=== PATIENT | male | born 1935 | race Caucasian/White ===

== ENCOUNTER 2017-12-01 18:54 | Emergency (ER) | payer MEDICARE ==
[2017-12-01] MEDS ORDERED: HYDROCODONE/ACETAMINOPHEN 5-325 MG TABLET PO ONE (20:55)
--- NOTE | 2017-12-01 20:55 | ER Document Report ---
ED Medical Screen (RME) - General Chief Complaint: Flank Pain Stated Complaint: FLANK PAIN Time Seen by Provider: 12/01/17 20:53 Notes: RAPID MEDICAL EVALUATION DISCLOSURE I have seen this patient as part of a Rapid Medical Evaluation and, if applicable, placed any initially appropriate orders. The patient will be seen and fully evaluated, including a full history and physical exam, by a provider ( in Main ED or Fast Track) when a room becomes available. 82-year-old male here with complaints of right back pain nonradiating ongoing for the past 2 weeks intermittently. Pain is worse with movement. Pain is improved with minimizing movement. He has been taking Tylenol for the pain. He denies any nausea vomiting dysuria hematuria frequency hesitancy fevers chills. He denies any heavy lifting or traumatic injury. Denies any prior history of kidney stones. EXAM No tenderness to palpation of the paraspinal musculature or midline spine No significant abdominal tenderness No peritoneal signs TRAVEL OUTSIDE OF THE [place] IN LAST 30 DAYS: No - Related Data Allergies/Adverse Reactions: No Known Allergies Allergy (Verified 12/01/17 18:57) Past Medical History - Past Medical History Cardiac Medical History: Denies: Hx Heart Attack, Hx Hypertension Pulmonary Medical History: Denies: Hx Asthma Neurological Medical History: Denies: Hx Cerebrovascular Accident, Hx Seizures Renal/ Medical History: Reports: Hx Benign Prostatic Hyperplasia GI Medical History: Reports: Hx Hiatal Hernia. Denies: Hx Hepatitis, Hx Ulcer Infectious Medical History: Denies: Hx Hepatitis Past Surgical History: Reports: Hx Abdominal Surgery - hernia repair, Hx Orthopedic Surgery - cervical fusion. Denies: Hx Open Heart Surgery, Hx Pacemaker - Immunizations Hx Diphtheria, Pertussis, Tetanus Vaccination: - unknown Physical Exam - Vital signs Vitals: Temp Pulse Resp BP Pulse Ox 98 F 68 18 151/85 H 99 12/01/17 19:16 12/01/17 19:16 12/01/17 19:16 12/01/17 19:16 12/01/17 19:16 Course - Vital Signs Vital signs: Temp Pulse Resp BP Pulse Ox 98 F 68 18 151/85 H 99 12/01/17 19:16 12/01/17 19:16 12/01/17 19:16 12/01/17 19:16 12/01/17 19:16
[2017-12-01 21:13] LABS: APPEARANCE,URINE CLEAR; BILIRUBIN,URINE NEGATIVE (NEGATIVE); COLOR,URINE YELLOW; GLUCOSE, URINE NEGATIVE (NEGATIVE); KETONES,URINE NEGATIVE (NEGATIVE); LEUKOCYTE ESTERASE,URINE NEGATIVE (NEGATIVE); NITRITE,URINE NEGATIVE (NEGATIVE); PROTEIN,URINE NEGATIVE (NEGATIVE); URINE SPECIFIC GRAVITY 1.013
[2017-12-01 21:49] LABS: ABSOLUTE BASOPHILS # (AUTO) 0.1 10^3/uL (0.0-0.2); ABSOLUTE EOSINOPHILS # (AUTO) 0.3 10^3/uL (0.0-0.6); ABSOLUTE LYMPHOCYTES (AUTO) 1.8 10^3/uL (0.5-4.7); ABSOLUTE MONOCYTES (AUTO) 0.9 10^3/uL (0.1-1.4); ABSOLUTE NEUT (AUTO) 5.1 10^3/uL (1.7-8.2); BASOPHILS % (AUTO) 1.1 % (0-2); EOSINOPHILS % (AUTO) 3.5 % (0-6); HEMATOCRIT 49.8 % (37.9-51.0); HEMOGLOBIN 16.8 g/dL (13.5-17.0); LYMPHOCYTES % (AUTO) 22.2 % (13-45); MEAN CORPUSCULAR HEMOGLOBIN 30.5 pg (27.0-33.4); MEAN CORPUSCULAR HGB CONC 33.6 g/dL (32.0-36.0); MEAN CORPUSCULAR VOLUME 91 fl (80-97); MONOCYTES % (AUTO) 10.6 % (3-13); PLATELET COUNT 193 10^3/uL (150-450); RED BLOOD COUNT 5.49 10^6/uL (4.35-5.55); RED CELL DISTRIBUTION WIDTH 13.1 % (11.5-14.0); SEGMENTED NEUTROPHILS % (AUTO) 62.6 % (42-78); TOTAL CELLS COUNTED % (AUTO) 100 %; WHITE BLOOD COUNT 8.1 10^3/uL (4.0-10.5)
[2017-12-01 22:04] LABS: ALANINE AMINOTRANSFERASE 34 U/L (21-72); ALBUMIN 4.3 g/dL (3.5-5.0); ALKALINE PHOSPHATASE 88 U/L (38-126); ANION GAP 11 (5-19); ASPARTATE AMINO TRANSFERASE 35 U/L (17-59); BILIRUBIN,DIRECT 0.4 mg/dL (0.0-0.4); BILIRUBIN,TOTAL 0.5 mg/dL (0.2-1.3); BLOOD UREA NITROGEN 17 mg/dL (7-20); CALCIUM 9.2 mg/dL (8.4-10.2); CARBON DIOXIDE 26 mmol/L (22-30); CHLORIDE 104 mmol/L (98-107); GLUCOSE 100 mg/dL (75-110); POTASSIUM 4.2 mmol/L (3.6-5.0); SODIUM 140.7 mmol/L (137-145); TOTAL PROTEIN 7.4 g/dL (6.3-8.2)
--- NOTE | 2017-12-01 22:26 | RADIOLOGY REPORT (SQ) ---
EXAM DESCRIPTION: CT LTD RENAL STONE PROTOCOL ON COMPLETED DATE/TIME: 12/01/2017 9:52 pm REASON FOR STUDY: R back/flank pain; eval stone COMPARISON: None. TECHNIQUE: CT scan of the abdomen and pelvis performed without intravenous or oral contrast. Images reviewed with lung, soft tissue, and bone windows. Reconstructed coronal and sagittal MPR images revi ewed. All images stored on PACS. All CT scanners at this facility use dose modulation, iterative reconstruction, and/or weight based d osing when appropriate to reduce radiation dose to as low as reasonably achievable (ALARA). [facility]: Dose Right [facility]: CareDose [facility]: Dose Right [facility]: Teradose 4D [facility]: [employer] RADIATION DOSE: CT Rad equipment meets quality standard of care and radiation dose reduction techniq ues were employed. CTDIvol: 18.2 mGy. DLP: 998 mGy-cm.mGy. LIMITATIONS: None. FINDINGS: LOWER CHEST: No significant findings. No nodules or infiltrates. NON-CONTRASTED LIVER, SPLEEN, ADRENALS: 5 cm right hepatic lobe peripheral 5 cm low-density lesion wi th small internal calcifications. Evaluation limited by lack of IV contrast. No identified significa nt masses. PANCREAS: No masses. No peripancreatic inflammatory changes. GALLBLADDER: No identified stones by CT criteria. No inflammatory changes to suggest cholecystitis. RIGHT KIDNEY AND URETER: Small parenchymal cysts. Assessment limited by lack of IV contrast. No sig nificant calcifications. No hydronephrosis or hydroureter. LEFT KIDNEY AND URETER: No suspicious masses. Assessment limited by lack of IV contrast. No signifi cant calcifications. No hydronephrosis or hydroureter. AORTA AND RETROPERITONEUM: No aneurysm. No retroperitoneal masses or adenopathy. BOWEL AND PERITONEAL CAVITY: Diverticulosis. No obvious masses or inflammatory changes. No free flui d. APPENDIX: Normal. PELVIS, BLADDER, AND ABDOMINAL WALL:Small fat containing right inguinal hernia. No free fluid. Bladde r normal. BONES: No acute findings. OTHER: No other significant finding. IMPRESSION: NO ACUTE PROCESS IN THE ABDOMEN OR PELVIS. COMMENT: Quality ID # [id number]: Final reports with documentation of one or more dose reduction techniques (e.g., Automated exposure control, adjustment of the mA and/or kV according to patient size, use of iterative reconstruction technique) TECHNICAL DOCUMENTATION: JOB ID: [id number] [place]-72 2010 [employer]- All Rights Reserved Reading location - IP/workstation name: [email or web address]
[2017-12-01 23:14] VITALS: BP 142/92
[2017-12-01] MEDS ORDERED: LIDOCAINE 5% (700 MG) TRANSDERMAL ADH..PATCH TP ONE (23:21)
--- NOTE | 2017-12-01 23:22 | ER Document Report ---
ED General - General Mode of Arrival: Ambulatory Information source: Patient TRAVEL OUTSIDE OF THE [place]. IN LAST 30 DAYS: No <MARTY FELIX - Last Filed: 12/01/17 23:46> <HIRO FELIZ - Last Filed: 12/02/17 02:41> - General Chief Complaint: Flank Pain Stated Complaint: FLANK PAIN Time Seen by Provider: 12/01/17 20:53 Notes: Patient is an 82 year old male that presents to the emergency department today with complaints of right sided lower back pain x2 weeks. Patient states his pain is exacerbated with movement. Patient states he has taken "minor stuff for pain like tylenol" which minimally relieved his symptoms. Patient denies cough, fevers, fall, or new activities. (MARTY FELIX) - Related Data Allergies/Adverse Reactions: No Known Allergies Allergy (Verified 12/01/17 18:57) Past Medical History - General Information source: Patient - Social History Smoking Status: Never Smoker Cigarette use (# per day): No Chew tobacco use (# tins/day): Yes Frequency of alcohol use: Social Drug Abuse: None Lives with: Family Family History: Reviewed & Not Pertinent Patient has suicidal ideation: No Patient has homicidal ideation: No Renal/ Medical History: Reports: Hx Benign Prostatic Hyperplasia GI Medical History: Reports: Hx Hiatal Hernia Past Surgical History: Reports: Hx Abdominal Surgery - hernia repair, Hx Orthopedic Surgery - cervical fusion - Immunizations Hx Diphtheria, Pertussis, Tetanus Vaccination: - unknown <MARTY FELIX - Last Filed: 12/01/17 23:46> Review of Systems - Review of Systems Constitutional: denies: Fever EENT: No symptoms reported Cardiovascular: No symptoms reported Respiratory: denies: Cough Gastrointestinal: No symptoms reported Genitourinary: No symptoms reported Male Genitourinary: No symptoms reported Musculoskeletal: See HPI, Back pain - right side, lower, Muscle pain - hurts to move Skin: No symptoms reported Hematologic/Lymphatic: No symptoms reported Neurological/Psychological: No symptoms reported -: Yes All other systems reviewed and negative <MARTY FELIX - Last Filed: 12/01/17 23:46> Physical Exam - Vital signs Interpretation: Normal - General General appearance: Appears well, Alert - HEENT Head: Normocephalic, Atraumatic Eyes: Normal Pupils: PERRL - Respiratory Respiratory status: No respiratory distress Chest status: Nontender Breath sounds: Normal Chest palpation: Normal - Cardiovascular Rhythm: Regular Heart sounds: Normal auscultation Murmur: No - Abdominal Inspection: Normal Distension: No distension Bowel sounds: Normal Tenderness: Nontender Organomegaly: No organomegaly - Back Back: Normal, Tender - Mild paraspinal tenderness to palpation T12-L2. Reproducible tenderness. No CVA tenderness. - Extremities General upper extremity: Normal inspection, Nontender, Normal color, Normal ROM , Normal temperature General lower extremity: Normal inspection, Nontender, Normal color, Normal ROM , Normal temperature, Normal weight bearing. No: Jean's sign - Neurological Neuro grossly intact: Yes Cognition: Normal Orientation: AAOx4 Heather Coma Scale Eye Opening: Spontaneous [place] Coma Scale Verbal: Oriented [place] Coma Scale Motor: Obeys Commands [place] Coma Scale Total: 15 Speech: Normal Motor strength normal: LUE, RUE, LLE, RLE Sensory: Normal - Psychological Associated symptoms: Normal affect, Normal mood - Skin Skin Temperature: Warm Skin Moisture: Dry Skin Color: Normal <HIRO FELIZ - Last Filed: 12/02/17 02:41> - Vital signs Vitals: Temp Pulse Resp BP Pulse Ox 98 F 68 18 151/85 H 99 12/01/17 19:16 12/01/17 19:16 12/01/17 19:16 12/01/17 19:16 12/01/17 19:16 Course - Laboratory Result Diagrams: 12/01/17 21:37 12/01/17 21:37 <MARTY FELIX - Last Filed: 12/01/17 23:46> - Laboratory Result Diagrams: 12/01/17 21:37 12/01/17 21:37 <HIRO FELIZ - Last Filed: 12/02/17 02:41> - Re-evaluation Re-evalutation: 12/02/17 Patient with no acute findings on blood work, urine, or CT. Reproducible pain that is worse with movement. Patient does not want anything stronger than Tylenol. He will be given Lidoderm patches and is to follow-up with his doctor. No weakness or paresthesias. No other concerns. Stable for discharge. (HIRO FELZI) - Vital Signs Vital signs: Temp Pulse Resp BP Pulse Ox 97.8 F 68 18 142/92 H 97 12/01/17 23:03 12/01/17 23:03 12/01/17 23:03 12/01/17 23:03 12/01/17 23:03 - Laboratory Laboratory results interpreted by me: 12/01/17 19:18 Urine Urobilinogen 2.0 H Discharge <MARTY FELIX - Last Filed: 12/01/17 23:46> <HIRO FELIZ - Last Filed: 12/02/17 02:41> - Discharge Clinical Impression: Lower back injury Qualifiers: Encounter type: initial encounter Qualified Code(s): S39.92XA - Unspecified injury of lower back, initial encounter Condition: Stable Disposition: HOME, SELF-CARE Instructions: Low Back Pain ([facility]) Additional Instructions: Please follow-up with your doctor this week. Prescriptions: Lidocaine [Lidoderm 5% (700 mg) Transdermal Patch] 1 patch TP DAILY #14 adh..patch Scribe Attestation: 12/02/17 02:41 I personally performed the services described in the documentation, reviewed and edited the documentation which was dictated to the scribe in my presence, and it accurately records my words and actions. (HIRO FELIZ) Scribe Documentation - Scribe Written by Armida:: Armida Barbosa, 12/01/2017 [id number] acting as scribe for :: Caroline <MARTY FELIX - Last Filed: 12/01/17 23:46>
== END 2017-12-01 23:32 | disposition home or self-care (01) ==
LOC: ER 18:54
DX: S39.92XA Unspecified injury of lower back, initial encounter (principal); R10.9 Unspecified abdominal pain; M54.5 Low back pain; X58.XXXA Exposure to other specified factors, initial encounter
CPT/HCPCS: 99284; 36415; 85025; 80053; 81001; 76380; A9270

== ENCOUNTER → 2018-03-10 | Outpatient (CLI) | payer MEDICARE | LOC: DACC 15:17 | PROVIDERS: ATTEND Physician Assistant Medical | DX: L08.9 Local infection of the skin and subcutaneous tissue, unspecified (principal); B96.89 Other specified bacterial agents as the cause of diseases classified elsewhere | CPT/HCPCS: 87070; 87077; 87205 ==

== ENCOUNTER → 2019-06-07 | Outpatient (CLI) | payer MEDICARE ==
--- NOTE | 2019-06-07 13:36 | RADIOLOGY REPORT (SQ) ---
EXAM DESCRIPTION: MRI HEAD COMBO COMPLETED DATE/TIME: 06/07/2019 12:16 pm REASON FOR STUDY: R41.0 DISORIENTATION, UNSPECIFIED R27.0 ATAXIA, UNSPECIFIED R27.0 ATAXIA, UNSPECI FIED R41.0 DISORIENTATION, UNSPECIFIED COMPARISON: None. TECHNIQUE: Multiplanar imaging includes noncontrasted T1, T2, FLAIR, diffusion with ADC map and post gadolinium contrast T1 sequences. Images stored on PACS. CONTRAST TYPE AND DOSE: 20 mL Dotarem. RENAL FUNCTION: Not indicated. ACR Type II contrast agent associated with few, if any, unconfounded cases of NSF LIMITATIONS: None. FINDINGS: ANATOMY: Incidental note of cavum septum pellucidum et vergae variant of the lateral ventr icles. Normal vascular flow voids. Pituitary fossa normal. CSF SPACES: Normal in size and contour. No hemorrhage. CEREBRUM: Mild global volume loss. Extensive, scattered and confluent periventricular and deep white matter T2/FLAIR hyperintensity. 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 No evidence of hemorrhage, mass, or extraaxial fluid collection. No abnormal enhancement post contrast. POSTERIOR FOSSA: No signal alteration. No hemorrhage. No edema, masses, or mass effect. Internal elzbieta tory canals, cerebellopontine angles, mastoids normal. No enhancing lesions. No abnormal enhancement post contrast. DIFFUSION IMAGING: Negative for acute or subacute infarction. ORBITS: No masses. Globes normal. PARANASAL SINUSES: No fluid levels. Mucosa normal. OTHER: No other significant finding. IMPRESSION: 1. Advanced small vessel white matter disease and global volume loss. No abnormal intr acranial contrast enhancement. 2. 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 EVIDENCE OF ACUTE STROKE: NO. TECHNICAL DOCUMENTATION: JOB ID: [id number] [employer]- All Rights Reserved Reading location - IP/workstation name: [email or web address]
== END ==
LOC: RAD 11:01
PROVIDERS: ATTEND Physician Assistant
DX: R90.82 White matter disease, unspecified (principal); R27.0 Ataxia, unspecified; R41.0 Disorientation, unspecified
CPT/HCPCS: 82565; 70553; A9576

== ENCOUNTER 2019-12-03 02:47 | Emergency (ER) | payer MEDICARE, OTHER ==
--- NOTE | 2019-12-03 04:32 | ER Document Report ---
HPI - HPI Patient complains to provider of: constipation Time Seen by Provider: 12/03/19 04:09 Pain Level: 0 Context: 84-year-old male presents to the emergency department with chief complaint of constipation. Per patient, he has not had a regular bowel movement in 2 days but had a small bowel movement this morning. Patient states that he is passing gas. Patient denies any abdominal pain. Patient states that he has been straining for the last 2 days to have bowel movement. Patient states that his daughter is giving him some type of laxative mixed into his drink in the morning. Patient denies fevers or chills, denies any nausea or vomiting, denies chest pain or shortness of breath. - REPRODUCTIVE Reproductive: DENIES: : Past Medical History - Social History Smoking Status: Never Smoker Family History: Reviewed & Not Pertinent Patient has suicidal ideation: No Patient has homicidal ideation: No - Past Medical History Cardiac Medical History: Denies: Hx Heart Attack, Hx Hypertension Pulmonary Medical History: Denies: Hx Asthma Neurological Medical History: Denies: Hx Cerebrovascular Accident, Hx Seizures Renal/ Medical History: Reports: Hx Benign Prostatic Hyperplasia. Denies: Hx Peritoneal Dialysis GI Medical History: Reports: Hx Hiatal Hernia. Denies: Hx Hepatitis, Hx Ulcer Infectious Medical History: Denies: Hx Hepatitis Past Surgical History: Reports: Hx Abdominal Surgery - hernia repair, Hx Orthopedic Surgery - cervical fusion. Denies: Hx Open Heart Surgery, Hx Pacemaker - Immunizations Hx Diphtheria, Pertussis, Tetanus Vaccination: - unknown Vertical Provider Document - CONSTITUTIONAL Notes: PHYSICAL EXAMINATION: Reviewed vital signs and charting by RN GENERAL: Alert, interacts well. No acute distress. HEAD: Normocephalic, atraumatic. EYES: Pupils equal and round. Extraocular movements intact. ENT: Oral mucosa moist, tongue midline. NECK: Full range of motion. Trachea midline. LUNGS: Clear to auscultation bilaterally, no wheezes, rales, or rhonchi. No respiratory distress. HEART: Regular rate and rhythm. No murmur ABDOMEN: soft, mild left lower quadrant tenderness to palpation. No distention. Bowel sounds present EXTREMITIES: Moves all 4 extremities spontaneously. No edema, No cyanosis. PSYCH: Normal affect, normal mood. SKIN: Warm, dry, normal turgor. No rashes or lesions noted. - INFECTION CONTROL TRAVEL OUTSIDE OF THE [place] IN LAST 30 DAYS: No Course - Re-evaluation Re-evalutation: 12/03/19 04:31 Well-appearing and nontoxic. Patient presents with constipation, had a small bowel movement today and last full bowel movement was 2 days ago. Patient denies any abdominal pain. Patient refused a rectal exam and possible disimpaction. Patient refused an enema. KUB showed a normal gas bowel pattern with no air-fluid levels concerning for obstruction. Patient is passing gas. At this time I have recommended that he start MiraLAX there is no concerning etiology at this time he is stable for discharge. - Vital Signs Vital signs: Temp Pulse Resp BP Pulse Ox 97.7 F 98 16 126/65 H 96 12/03/19 02:55 12/03/19 02:52 12/03/19 02:52 12/03/19 02:52 12/03/19 02:52 Discharge - Discharge Clinical Impression: Constipation Qualifiers: Constipation type: unspecified constipation type Qualified Code(s): K59.00 - Constipation, unspecified Condition: Good Disposition: HOME, SELF-CARE Instructions: Constipation ([facility]) Additional Instructions: Please take 1 capful of MiraLAX and mix it with the liquid of your choice every morning until you start having regular bowel movements. If you do not see resul ts in 72 to 96 hours please do 1 cup in the morning and then 1 cup in the evening. If you start to have loose stools then reduce the dosing by one half. Please return to the emergency department if you develop severe abdominal pain, high fevers, intractable nausea or vomiting, or have any other concerning symptoms. Referrals: ARI MARTIN PA [Primary Care Provider] - Follow up as needed
--- NOTE | 2019-12-03 04:36 | RADIOLOGY REPORT (SQ) ---
Abdomen single view on 12/03/2019 at 4:01 AM Clinical indications: Constipation COMPARISON: None FINDINGS: Bowel gas pattern is nonspecific. Mild stool is noted in the rectum without significant constipation. Degenerative changes are noted in the spine. No abnormal calcification or mass effect is noted. IMPRESSION: Nonspecific abdomen.
[2019-12-03 05:06] VITALS: BP 127/70
== END 2019-12-03 04:49 | disposition home or self-care (01) ==
LOC: ER 02:47
DX: K59.00 Constipation, unspecified (principal)
CPT/HCPCS: 74018; 99283

== ENCOUNTER 2019-12-12 15:26 | Emergency (ER) | payer MEDICARE ==
--- NOTE | 2019-12-12 15:44 | ER Document Report ---
ED Medical Screen (RME) - General Chief Complaint: Flank Pain Stated Complaint: FLANK PAIN Time Seen by Provider: 12/12/19 15:40 Primary Care Provider: ARI MARTIN PA [Primary Care Provider] - Follow up as needed Information source: Patient Notes: Patient presents with right flank pain for the past 2 days. Patient denies any fever nausea or vomiting. Patient denies any urinary symptoms. Patient reports past medical history only significant for BPH. I have greeted and performed a rapid initial assessment of this patient. A comprehensive ED assessment and evaluation of the patient, analysis of test results and completion of the medical decision making process will be conducted by additional ED providers. TRAVEL OUTSIDE OF THE [place] IN LAST 30 DAYS: No - Related Data Allergies/Adverse Reactions: No Known Allergies Allergy (Verified 12/01/17 18:57) Past Medical History - Social History Chew tobacco use (# tins/day): No Frequency of alcohol use: Occasional Drug Abuse: None - Past Medical History Cardiac Medical History: Denies: Hx Heart Attack, Hx Hypertension Pulmonary Medical History: Denies: Hx Asthma Neurological Medical History: Denies: Hx Cerebrovascular Accident, Hx Seizures Renal/ Medical History: Reports: Hx Benign Prostatic Hyperplasia. Denies: Hx Peritoneal Dialysis GI Medical History: Reports: Hx Hiatal Hernia. Denies: Hx Hepatitis, Hx Ulcer Infectious Medical History: Denies: Hx Hepatitis Past Surgical History: Reports: Hx Abdominal Surgery - hernia repair, Hx Orthopedic Surgery - cervical fusion. Denies: Hx Open Heart Surgery, Hx Pacemaker - Immunizations Hx Diphtheria, Pertussis, Tetanus Vaccination: - unknown Physical Exam - Vital signs Vitals: Temp Pulse Resp BP Pulse Ox 98.6 F 83 20 96/71 L 96 12/12/19 15:36 12/12/19 15:36 12/12/19 15:36 12/12/19 15:36 12/12/19 15:36 - Back Back: CVA tenderness - Right Course - Vital Signs Vital signs: Temp Pulse Resp BP Pulse Ox 98.6 F 83 20 96/71 L 96 12/12/19 15:39 12/12/19 15:36 12/12/19 15:36 12/12/19 15:36 12/12/19 15:36 Doctor's Discharge - Discharge Referrals: ARI MARTIN PA [Primary Care Provider] - Follow up as needed
[2019-12-12 16:06] LABS: ABSOLUTE BASOPHILS # (AUTO) 0.1 10^3/uL (0.0-0.2); ABSOLUTE EOSINOPHILS # (AUTO) 0.3 10^3/uL (0.0-0.6); ABSOLUTE LYMPHOCYTES (AUTO) 1.5 10^3/uL (0.5-4.7); ABSOLUTE MONOCYTES (AUTO) 1.1 10^3/uL (0.1-1.4); ABSOLUTE NEUT (AUTO) 6.3 10^3/uL (1.7-8.2); BASOPHILS % (AUTO) 0.9 % (0-2); EOSINOPHILS % (AUTO) 3.1 % (0-6); HEMATOCRIT 47.6 % (37.9-51.0); HEMOGLOBIN 16.5 g/dL (13.5-17.0); LYMPHOCYTES % (AUTO) 16.3 % (13-45); MEAN CORPUSCULAR HEMOGLOBIN 30.2 pg (27.0-33.4); MEAN CORPUSCULAR HGB CONC 34.7 g/dL (32.0-36.0); MEAN CORPUSCULAR VOLUME 87 fl (80-97); MONOCYTES % (AUTO) 11.5 % (3-13); PLATELET COUNT 222 10^3/uL (150-450); RED BLOOD COUNT 5.47 10^6/uL (4.35-5.55); RED CELL DISTRIBUTION WIDTH 13.4 % (11.5-14.0); SEGMENTED NEUTROPHILS % (AUTO) 68.2 % (42-78); TOTAL CELLS COUNTED % (AUTO) 100 %; WHITE BLOOD COUNT 9.2 10^3/uL (4.0-10.5)
[2019-12-12 16:29] LABS: ALKALINE PHOSPHATASE 73 U/L (38-126); ANION GAP 8 (5-19); ASPARTATE AMINO TRANSFERASE 28 U/L (17-59); BILIRUBIN,TOTAL 0.4 mg/dL (0.2-1.3); BLOOD UREA NITROGEN 21 mg/dL (7-20); CALCIUM 9.2 mg/dL (8.4-10.2); CARBON DIOXIDE 25 mmol/L (22-30); CHLORIDE 101 mmol/L (98-107); GLUCOSE 95 mg/dL (75-110); POTASSIUM 4.9 mmol/L (3.6-5.0); TOTAL PROTEIN 7.1 g/dL (6.3-8.2)
--- NOTE | 2019-12-12 16:36 | RADIOLOGY REPORT (SQ) ---
EXAM DESCRIPTION: CT ABD/PELVIS NO ORAL OR IV IMAGES COMPLETED DATE/TIME: 12/12/2019 4:05 pm REASON FOR STUDY: r flank pain COMPARISON: None. TECHNIQUE: CT scan of the abdomen and pelvis performed without intravenous or oral contrast. Images reviewed with lung, soft tissue, and bone windows. Reconstructed coronal and sagittal MPR images revi ewed. All images stored on PACS. All CT scanners at this facility use dose modulation, iterative reconstruction, and/or weight based d osing when appropriate to reduce radiation dose to as low as reasonably achievable (ALARA). [facility]: Dose Right [facility]: CareDose [facility]: Dose Right [facility]: Teradose 4D [facility]: [employer] RADIATION DOSE: CT Rad equipment meets quality standard of care and radiation dose reduction techniq ues were employed. CTDIvol: 15.5 mGy. DLP: 950 mGy-cm.mGy. LIMITATIONS: None. FINDINGS: LOWER CHEST: Moderate hiatal hernia. NON-CONTRASTED LIVER, SPLEEN, ADRENALS: Evaluation limited by lack of IV contrast. 4.8 cm right hepa tic lobe cyst with single thin septation. No other identified significant masses. PANCREAS: No masses. No peripancreatic inflammatory changes. GALLBLADDER: No identified stones by CT criteria. No inflammatory changes to suggest cholecystitis. RIGHT KIDNEY AND URETER: No suspicious masses. Assessment limited by lack of IV contrast. 18 mm cyst . No definitive stones. Vascular calcification noted. No hydronephrosis or hydroureter. LEFT KIDNEY AND URETER: No suspicious masses. Assessment limited by lack of IV contrast. No signifi cant calcifications. No hydronephrosis or hydroureter. AORTA AND RETROPERITONEUM: No aneurysm. No retroperitoneal masses or adenopathy. BOWEL AND PERITONEAL CAVITY: Scattered colonic diverticula. No focal bowel wall thickening. Moderat e hiatal hernia. Moderate formed stool throughout the colon and within the rectal vault. APPENDIX: Normal. PELVIS, BLADDER, AND ABDOMINAL WALL:No focal bladder wall thickening. Prostatomegaly measuring 4.8 c m. No free fluid, adenopathy or mass. BONES: No acute bony abnormality. No suspicious osseous lesions. Evidence of prior left ilium fract ure. OTHER: No other significant finding. IMPRESSION: 1. No evidence of nephrolithiasis or obstructive uropathy. No other evidence of acute intra-abdominal/pelvic process. 2. Multiple incidental findings as above. COMMENT: Quality ID # [id number]: Final reports with documentation of one or more dose reduction techniques (e.g., Automated exposure control, adjustment of the mA and/or kV according to patient size, use of iterative reconstruction technique) TECHNICAL DOCUMENTATION: JOB ID: [id number] 2010 [employer]- All Rights Reserved Reading location - IP/workstation name: [email or web address]
--- NOTE | 2019-12-12 17:02 | ER Document Report ---
ED General - General Chief Complaint: Flank Pain Stated Complaint: FLANK PAIN Time Seen by Provider: 12/12/19 15:40 Primary Care Provider: ARI MARTIN PA [Primary Care Provider] - Follow up as needed TRAVEL OUTSIDE OF THE [place] IN LAST 30 DAYS: No - HPI Notes: Patient is an 84-year-old male who presents the emergency department for evaluation of pain in his right flank. He states it is been present for a couple of days. He states he has no pain at rest, it only hurts to move, and in certain positions. He denies any fevers or chills. No nausea or vomiting. He is eating and drinking normally. Normal bowel movements. No melena or hematochezia. No urinary symptoms, no hematuria. He states he has a history of BPH, stopped taking the medication for this, and still states he is not having any trouble urinating. - Related Data Allergies/Adverse Reactions: No Known Allergies Allergy (Verified 12/01/17 18:57) Past Medical History - General Information source: Patient - Social History Smoking Status: Former Smoker Chew tobacco use (# tins/day): No Frequency of alcohol use: Occasional Drug Abuse: None Family History: Reviewed & Not Pertinent Patient has homicidal ideation: No - Past Medical History Cardiac Medical History: Denies: Hx Heart Attack, Hx Hypertension Pulmonary Medical History: Denies: Hx Asthma Neurological Medical History: Denies: Hx Cerebrovascular Accident, Hx Seizures Renal/ Medical History: Reports: Hx Benign Prostatic Hyperplasia. Denies: Hx Peritoneal Dialysis GI Medical History: Reports: Hx Hiatal Hernia. Denies: Hx Hepatitis, Hx Ulcer Infectious Medical History: Denies: Hx Hepatitis Past Surgical History: Reports: Hx Abdominal Surgery - hernia repair, Hx Ort hopedic Surgery - cervical fusion. Denies: Hx Open Heart Surgery, Hx Pacemaker - Immunizations Hx Diphtheria, Pertussis, Tetanus Vaccination: - unknown Review of Systems - Review of Systems Genitourinary: See HPI Musculoskeletal: See HPI -: Yes All other systems reviewed and negative Physical Exam - Vital signs Vitals: Temp Pulse Resp BP Pulse Ox 98.6 F 83 20 96/71 L 96 12/12/19 15:36 12/12/19 15:36 12/12/19 15:36 12/12/19 15:36 12/12/19 15:36 - Notes Notes: Vital signs reviewed, please refer to chart. Head is normocephalic, atraumatic. Pupils equal round, reactive to light. Neck is supple without meningismus. Heart is regular rate and rhythm. Lungs are clear to auscultation bilaterally. Abdomen is soft, nontender, normoactive bowel sounds throughout. Examination of the spine yields no midline tenderness or step-off. He has paraspinal musculature tenderness on the right at approximately L2-L3 with associated spasm. Extremities without cyanosis, clubbing. Posterior calves are nontender. Peripheral pulses are equal. Skin is warm and dry. Patient is awake, alert, neurological exam is nonfocal. Course - Re-evaluation Re-evalutation: 12/12/19 17:12 Patient presents to the emergency department for evaluation. He has right flank pain that is reproducible, only present with movement. He has no other associated symptoms. He had a CT scan which showed some chronic appearing cysts but no other acute process. I explained to the patient that my suspicion is that this is musculoskeletal. He disagrees. At any rate, I am still just waiting for his urinalysis. He does not have a significant leukocytosis. His kidney function is normal. A CT scan fails to reveal hydronephrosis or kidney stone. He is treated here with Tylenol. I will have him follow-up with primary care assuming normal urine. Patient is stable, we will continue to monitor. 12/12/19 17:27 Urinalysis fails to reveal any signs of bladder infection. Again I do suspect this pain is musculoskeletal. We will send him home with Robaxin and close follow-up. He is to return to the ED with worsening. - Vital Signs Vital signs: Temp Pulse Resp BP Pulse Ox 98.6 F 83 20 96/71 L 96 12/12/19 15:39 12/12/19 15:36 12/12/19 15:36 12/12/19 15:36 12/12/19 15:36 - Laboratory Result Diagrams: 12/12/19 15:45 12/12/19 15:45 Laboratory results interpreted by me: 12/12/19 12/12/19 15:45 16:40 Sodium 133.8 L BUN 21 H Urine Urobilinogen 2.0 H - Diagnostic Test Radiology reviewed: Reports reviewed Radiology results interpreted by me: 12/12/19 17:13 Abdomen/Pelvis CT 12/12/19 15:43 IMPRESSION: 1. No evidence of nephrolithiasis or obstructive uropathy. No other evidence of acute intra-abdominal/pelvic process. 2. Multiple incidental findings as above. Discharge - Discharge Clinical Impression: Liver cyst, Cyst of right kidney, Enlarged prostate Low back pain Qualifiers: Chronicity: acute Back pain laterality: right Sciatica presence: without sciatica Qualified Code(s): M54.5 - Low back pain Condition: Stable Disposition: HOME, SELF-CARE Instructions: Low Back Pain ([facility]) Additional Instructions: Your blood work and urine testing did not show any acute abnormalities. Your CT scan showed a liver cyst, a right kidney cyst, and an enlarged prostate. No clear reason for your pain was identified on your testing. Your physical exam seems most consistent with mechanical low back pain. Try moist heat to the lower back. Take Robaxin, the muscle relaxer, as needed. Please watch for dizziness and drowsiness with this medication. Follow-up with your doctor next week. If you develop worsening or new concerning symptoms of any sort, return immediately to the emergency department for reevaluation. Referrals: ARI MARTIN PA [Primary Care Provider] - Follow up as needed
[2019-12-12] MEDS ORDERED: ACETAMINOPHEN 325 MG TABLET PO ONE (17:05)
[2019-12-12 17:21] LABS: APPEARANCE,URINE CLEAR; BILIRUBIN,URINE NEGATIVE (NEGATIVE); COLOR,URINE YELLOW; GLUCOSE, URINE NEGATIVE (NEGATIVE); KETONES,URINE NEGATIVE (NEGATIVE); LEUKOCYTE ESTERASE,URINE NEGATIVE (NEGATIVE); NITRITE,URINE NEGATIVE (NEGATIVE); PROTEIN,URINE NEGATIVE (NEGATIVE); URINE SPECIFIC GRAVITY 1.018
[2019-12-12 18:18] VITALS: BP 116/78
== END 2019-12-12 18:16 | disposition home or self-care (01) ==
LOC: ER 15:26
DX: K76.89 Other specified diseases of liver (principal); N28.1 Cyst of kidney, acquired; N40.0 Benign prostatic hyperplasia without lower urinary tract symptoms; M54.5 Low back pain; R10.9 Unspecified abdominal pain
CPT/HCPCS: 99284; 36415; 85025; 80053; 81001; 74176; A9270

== ENCOUNTER 2019-12-23 01:51 | Emergency (ER) | payer MEDICARE ==
[2019-12-23] MEDS ORDERED: OXYCODONE-ACETAMINOPHEN 5-325 MG TABLET PO ONE (02:13)
[2019-12-23] MEDS ORDERED: ONDANSETRON 4 MG TAB.RAPDIS PO ONE (02:13)
--- NOTE | 2019-12-23 02:14 | ER Document Report ---
ED Fall - General Chief Complaint: Shoulder Injury Stated Complaint: FALL Time Seen by Provider: 12/23/19 02:07 Primary Care Provider: REKHA ERIC JR, DO [ACTIVE PROVISIONAL STAFF] - 12/24/19 Notes: Patient is an 84-year-old male that comes to the emergency department for chief complaint of a fall at home just prior to arrival. He states that he was wearing socks, slipped on the floor, and then struck his right shoulder on the ground. He denies head injury, headache, neck pain, back pain, loss of consciousness, hip pain, focal numbness or weakness, incontinence. He is not on a blood thinner. Patient lives at home. Patient denies any other complaints. TRAVEL OUTSIDE OF THE [place] IN LAST 30 DAYS: No - Related data Allergies/Adverse Reactions: No Known Allergies Allergy (Verified 12/23/19 02:24) Past Medical History - General Information source: Patient - Social History Smoking Status: Never Smoker Frequency of alcohol use: None Drug Abuse: None Lives with: Family Family History: Reviewed & Not Pertinent Patient has homicidal ideation: No - Past Medical History Cardiac Medical History: Denies: Hx Heart Attack, Hx Hypertension Pulmonary Medical History: Denies: Hx Asthma Neurological Medical History: Denies: Hx Cerebrovascular Accident, Hx Seizures Renal/ Medical History: Reports: Hx Benign Prostatic Hyperplasia. Denies: Hx Peritoneal Dialysis GI Medical History: Reports: Hx Hiatal Hernia. Denies: Hx Hepatitis, Hx Ulcer Infectious Medical History: Denies: Hx Hepatitis Past Surgical History: Reports: Hx Abdominal Surgery - hernia repair, Hx Orthopedic Surgery - cervical fusion. Denies: Hx Open Heart Surgery, Hx Pacemaker - Immunizations Hx Diphtheria, Pertussis, Tetanus Vaccination: Yes - unknown Review of Systems - Review of Systems Constitutional: No symptoms reported EENT: No symptoms reported Cardiovascular: No symptoms reported Respiratory: No symptoms reported Gastrointestinal: No symptoms reported Genitourinary: No symptoms reported Male Genitourinary: No symptoms reported Musculoskeletal: See HPI Skin: No symptoms reported Hematologic/Lymphatic: No symptoms reported Neurological/Psychological: No symptoms reported Physical Exam - Vital signs Vitals: Pulse Ox 96 12/23/19 02:06 - Notes Notes: GENERAL: Alert, interacts well. No acute distress. HEAD: Normocephalic, atraumatic. EYES: Pupils equal, round, and reactive to light. Extraocular movements intact. ENT: Oral mucosa moist, tongue midline. Oropharynx unremarkable. Airway patent. Nares patent, sinuses non-tender, ear canals unremarkable, TM's intact. NECK: Full range of motion. Supple. Trachea midline. No lymphadenopathy. LUNGS: Clear to auscultation bilaterally, no wheezes, rales, or rhonchi. No respiratory distress. Non-tender chest wall. No signs of trauma. HEART: Regular rate and rhythm. No murmur ABDOMEN: Soft, non-tender. Non-distended. No signs of trauma. EXTREMITIES: Patient favors the right shoulder and will not abduct it. Tender over the proximal arm. Nontender clavicle. Normal range of motion of the elbow, wrist, fingers. 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 Normal capillary refill and sensation. Normal hips, lower extremities, and left upper extremity. BACK: no cervical, thoracic, lumbar midline tenderness. No saddle anesthesia, normal distal neurovascular exam. Moves all extremities in full range of motion. NEUROLOGICAL: Alert and oriented to person, place, and events. Normal speech. Cranial nerves II through XII grossly intact. Strength 5/5 in all extremities. PSYCH: Normal affect, normal mood. SKIN: Warm, dry, normal turgor. No rashes or lesions noted. Course - Re-evaluation Re-evalutation: Patient is very tender over the right proximal arm and will not move the arm at the shoulder. Normal elbow, wrist, neurovascular exam, no swelling or wounds noted. No evidence of trauma to the head, patient denies head trauma, no other trauma noted including to the neck, back, chest, etc. Patient has no other complaints except the shoulder injury. Imaging shows fractures at the right humeral head. Patient with no significant swelling to the area, reexamination shows no neurovascular deficits, patient is actually quite comfortable appearing after medication. I discussed this with patient at length, patient discussed with Dr. Rodríguez. Patient will follow-up with orthopedics, be discharged home with a sling, provided with pain medication with precautions, he is going to go be staying with family. Patient does state understanding and agreement, we also spoke to family on the phone because patient has some dementia. Stable and well-appearing at time of discharge. - Vital Signs Vital signs: Temp Pulse Resp BP Pulse Ox 97.8 F 78 18 118/80 98 12/23/19 05:09 12/23/19 05:09 12/23/19 05:09 12/23/19 05:09 12/23/19 05:09 Procedures - Immobilization right shoulder/arm Pre-Proc Neuro Vasc Exam: Normal Immobilizer type: Sling Performed by: RN Post-Proc Neuro Vasc Exam: Normal Alignment checked and good: Yes Discharge - Discharge Clinical Impression: Fall Qualifiers: Encounter type: initial encounter Qualified Code(s): W19.XXXA - Unspecified fall, initial encounter Humeral head fracture Qualifiers: Encounter type: initial encounter Fracture type: closed Laterality: right Qualified Code(s): S42.291A - Other displaced fracture of upper end of right humerus, initial encounter for closed fracture Condition: Stable Disposition: HOME, SELF-CARE Instructions: Oral Narcotic Medication ([facility]) Additional Instructions: Your evaluation shows fractures at the head of the humerus (the part of your arm that connects to your shoulder). Many times this simply needs to heal with a sling and does not need surgery, however this needs to be determined by orthopedics, please call the listed referral on Tuesday for close follow-up and additional management. Take the pain medication as prescribed, if you do take the stool softener to avoid constipation. Return to the emergency department for any concerning worsening symptoms including severe worsening swelling or pain, developing numbness, or any other concerning or worsening symptoms. Prescriptions: Polyethylene Glycol 3350 [Miralax Powder 17 gm/Packet] 1 packet PO DAILY PRN #1 pkg PRN Reason: Hydrocodone/Acetaminophen [[place] 5-325 mg Tablet] 1 tab PO ASDIR PRN #12 tablet PRN Reason: Referrals: REKHA ERIC JR, DO [ACTIVE PROVISIONAL STAFF] - 12/24/19
--- NOTE | 2019-12-23 04:05 | RADIOLOGY REPORT (SQ) ---
EXAM DESCRIPTION: Right shoulder [facility]: XR SHOULDER 2 OR MORE VIEWS Views: 3 CLINICAL HISTORY: 84 years Male; fall on shoulder, pain; COMPARISON: None. FINDINGS: There are multiple acute fracture planes extending to the right humeral head and surgical neck, at least a 2 part fracture. Maximum displacement is less than 3 to 4 mm. No dislocation of the humeral head. No a.c. subluxation. IMPRESSION: 1. Acute right humeral head fractures.
[2019-12-23] MEDS ORDERED: HYDROCODONE/ACETAMINOPHEN 5-325 MG (6 TAB/ER DISP) PO PRN (04:14)
[2019-12-23 05:11] VITALS: BP 118/80
== END 2019-12-23 05:10 | disposition home or self-care (01) ==
LOC: ER 01:51
DX: S42.291A Other displaced fracture of upper end of right humerus, initial encounter for closed fracture (principal); W01.0XXA Fall on same level from slipping, tripping and stumbling without subsequent striking against object, initial encounter; Y92.009 Unspecified place in unspecified non-institutional (private) residence as the place of occurrence of the external cause
CPT/HCPCS: 99283; 73030; A9270 ×3; S0119

== ENCOUNTER 2020-01-04 23:06 | Inpatient (IN) | payer MEDICARE ==
[2020-01-05 00:08] LABS: VENOUS BLOOD BASE EXCESS -0.4 mmol/L; VENOUS BLOOD PCO2 62.2 mmHg (35-63); VENOUS BLOOD PH 7.27 (7.30-7.42)
[2020-01-05 00:12] LABS: HEMATOCRIT 44.9 % (37.9-51.0); MEAN CORPUSCULAR HEMOGLOBIN 29.7 pg (27.0-33.4); MEAN CORPUSCULAR HGB CONC 33.4 g/dL (32.0-36.0); MEAN CORPUSCULAR VOLUME 89 fl (80-97); PLATELET COUNT 245 10^3/uL (150-450); RED BLOOD COUNT 5.05 10^6/uL (4.35-5.55); RED CELL DISTRIBUTION WIDTH 13.7 % (11.5-14.0); WHITE BLOOD COUNT 7.3 10^3/uL (4.0-10.5)
[2020-01-05 00:13] LABS: INTERNATIONAL RATION (INR) 1.09; PROTHROMBIN TIME 14.1 SEC (11.4-15.4)
[2020-01-05 00:26] LABS: ALKALINE PHOSPHATASE 100 U/L (38-126); ANION GAP 11 (5-19); ASPARTATE AMINO TRANSFERASE 32 U/L (17-59); BILIRUBIN,DIRECT 0.2 mg/dL (0.0-0.4); BILIRUBIN,TOTAL 0.9 mg/dL (0.2-1.3); BLOOD UREA NITROGEN 16 mg/dL (7-20); CALCIUM 8.5 mg/dL (8.4-10.2); CARBON DIOXIDE 25 mmol/L (22-30); CHLORIDE 99 mmol/L (98-107); GLUCOSE 149 mg/dL (75-110); POTASSIUM 4.3 mmol/L (3.6-5.0); TOTAL PROTEIN 6.9 g/dL (6.3-8.2)
[2020-01-05 00:39] LABS: ABSOLUTE LYMPHOCYTES# (MANUAL) 0.2 10^3/uL (0.5-4.7); BASOPHILS % (MANUAL) 4 % (0-2); EOSINOPHILS % (MANUAL) 2 % (0-6); LYMPHOCYTES % (MANUAL) 3 % (13-45); MONOCYTES % (MANUAL) 0 % (3-13); SEGMENTED NEUTROPHILS % (MAN) 91 % (42-78); TOTAL CELLS COUNTED 100
[2020-01-05 00:40] LABS: PLATELET COMMENT ADEQUATE; POIKILOCYTOSIS SLIGHT; TEAR DROP CELLS SLIGHT; TOXIC GRANULATION 1+; TOXIC VACUOLATION PRESENT
[2020-01-05] MEDS ORDERED: ACETAMINOPHEN 325 MG TABLET PO ONE (01:08)
[2020-01-05] MEDS ORDERED: NORMAL SALINE 1000 ML 1,000 ML IV ONE (01:25)
[2020-01-05] MEDS ORDERED: NORMAL SALINE IV ONE (01:28)
[2020-01-05] MEDS ORDERED: PIPERACILLIN/TAZOBACTAM 3.375 GM VIAL IV ONE (01:33)
--- NOTE | 2020-01-05 01:37 | ER Document Report ---
Entered by TINA OWUSU SCRIBE 01/05/20 0115 Acting as scribe for:JOE CROUCH IV, MD ED General - General Chief Complaint: Flank Pain Stated Complaint: RIGHT FLANK PAIN Time Seen by Provider: 01/05/20 01:12 Mode of Arrival: Medic Information source: Emergency Med Personnel Notes: This 84 year old male patient brought in by EMS from home presents to the ED to day with complaints of right flank pain that started prior to arrival. EMS reports that that the patient appeared diaphoretic and shaky upon their arrival. EMS states that the patient was seen here on 12/23/2019 for a fall and was diagnosed with a right humeral head fracture for which he was prescribed pain medication for that has since run out. According to ED nurse, the patient vomited during transport, so EMS administered pain and nausea medication in addition to 400 ml LR bolus. Patient's oxygen saturation was 88% on RA, so EMS placed the patient on 4L O2 via NC with O2 sats improving to 97%. Patient denies pain at this time. Denies shortness of breath. TRAVEL OUTSIDE OF THE [place] IN LAST 30 DAYS: No - Related Data Allergies/Adverse Reactions: No Known Allergies Allergy (Verified 12/23/19 02:24) Past Medical History - General Information source: [facility] Records - Social History Smoking Status: Former Smoker Cigarette use (# per day): No Chew tobacco use (# tins/day): No Smoking Education Provided: No Lives with: Family Family History: Reviewed & Not Pertinent Patient has suicidal ideation: No Patient has homicidal ideation: No Renal/ Medical History: Reports: Hx Benign Prostatic Hyperplasia GI Medical History: Reports: Hx Gastroesophageal Reflux Disease, Hx Hiatal Hernia Past Surgical History: Reports: Hx Herniorrhaphy, Hx Orthopedic Surgery - cervi rob fusion - Immunizations Hx Diphtheria, Pertussis, Tetanus Vaccination: Yes - unknown Review of Systems - Review of Systems Constitutional: No symptoms reported EENT: No symptoms reported Cardiovascular: No symptoms reported Respiratory: See HPI. denies: Short of breath Gastrointestinal: See HPI, Nausea, Vomiting Genitourinary: See HPI, Flank pain Male Genitourinary: No symptoms reported Musculoskeletal: No symptoms reported Skin: No symptoms reported Hematologic/Lymphatic: No symptoms reported Neurological/Psychological: No symptoms reported -: Yes All other systems reviewed and negative Physical Exam - Vital signs Vitals: Temp Pulse Ox 99.9 F 88 L 01/04/20 23:10 01/04/20 23:10 - General General appearance: Lethargic In distress: None - HEENT Head: Normocephalic, Atraumatic Eyes: Normal Pupils: PERRL - Respiratory Respiratory status: No respiratory distress Chest status: Nontender Breath sounds: Normal Chest palpation: Normal - Cardiovascular Rhythm: Regular Heart sounds: Normal auscultation Murmur: No Friction rub: No Gallop: None auscultated - Abdominal Inspection: Normal Distension: No distension Bowel sounds: Hypoactive Tenderness: Nontender Organomegaly: No organomegaly - Back Back: Normal, Nontender - Extremities General upper extremity: Other - Right shoulder exam is significant for ecchymosis on the anterior aspect of the deltoid. There is no obvious step-off, deformity, anterior fullness appreciated. Patient does have a positive apprehension test and tenderness on direct palpation of his right proximal biceps tendon General lower extremity: Normal inspection - Neurological Neuro grossly intact: Yes - Psychological Associated symptoms: Other - Unable to assess due to patient's medical condition - Skin Skin Temperature: Warm Skin Moisture: Diaphoretic Skin Color: Ecchymosis - ecchymosis present right anterior shoulder, Other - Pallor Course - Vital Signs Vital signs: Temp Pulse Resp BP Pulse Ox 97.9 F 15 91/62 L 100 01/05/20 06:54 01/05/20 06:50 01/05/20 06:50 01/05/20 06:50 - Laboratory Result Diagrams: 01/04/20 23:35 01/04/20 23:35 Laboratory results interpreted by me: 01/04/20 01/04/20 01/04/20 23:35 23:35 23:35 Seg Neuts % (Manual) 91 H Lymphocytes % (Manual) 3 L Monocytes % (Manual) 0 L Basophils % (Manual) 4 H Abs Lymphs (Manual) 0.2 L Abs Monocytes (Manual) 0.0 L Abs Basophils (Manual) 0.3 H VBG pH 7.27 L Sodium 134.5 L Glucose 149 H Lactic Acid Ionized Calcium Liseth Ammonia Urine Urobilinogen 01/04/20 01/05/20 01/05/20 23:35 02:15 02:54 Seg Neuts % (Manual) Lymphocytes % (Manual) Monocytes % (Manual) Basophils % (Manual) Abs Lymphs (Manual) Abs Monocytes (Manual) Abs Basophils (Manual) VBG pH Sodium Glucose Lactic Acid 2.9 H 2.3 H Ionized Calcium Liseth Ammonia Urine Urobilinogen 4.0 H 01/05/20 01/05/20 01/05/20 04:43 04:43 04:43 Seg Neuts % (Manual) Lymphocytes % (Manual) Monocytes % (Manual) Basophils % (Manual) Abs Lymphs (Manual) Abs Monocytes (Manual) Abs Basophils (Manual) VBG pH Sodium Glucose Lactic Acid 2.3 H Ionized Calcium Liseth 1.05 L Ammonia < 8.7 L Urine Urobilinogen - Diagnostic Test Radiology reviewed: Reports reviewed - EKG Interpretation by Me Additional EKG results interpreted by me: 01/05/20 05:40 EKG obtained on 01/04/2020 at 2331 hrs. was interpreted on the same day. Findings: Sinus tachycardia, rate 130, there is a large amount of baseline artifact which makes interpretation difficult, QRS complexes appear grossly narrow, ST segments are nonspecific. Impression: Abnormal EKG - Consults nile gastelum np, teacher preschool service Time consulted: 05:14 - LOIS Gastelum agreed to see pt in ED Reason for consultation: 01/05/20 05:42 hypotension, lactic acidosis, on vasopressors Consulted provider: will come to ER Critical Care Note - Critical Care Note Total time excluding time spent on procedures (mins): 120 Comments: hypotensive, lactic acidosis, on levophed Discharge - Discharge Clinical Impression: Lactic acidosis Hypotension Qualifiers: Hypotension type: unspecified hypotension type Qualified Code(s): I95.9 - Hypotension, unspecified Condition: Serious Disposition: ADMITTED INPATIENT Admitting Provider: Martha (Ross Lift Operator) Unit Admitted: ICU I personally performed the services described in the documentation, reviewed and edited the documentation which was dictated to the scribe in my presence, and it accurately records my words and actions.
[2020-01-05] MEDS ORDERED: PIPERACILLIN/TAZOBACTAM 4.5 GM VIAL IV ONE (01:39)
--- NOTE | 2020-01-05 02:16 | RADIOLOGY REPORT (SQ) ---
AP Portable chest: 01/05/2020 1:15 AM CDT History: 84-year old patient with weakness. Comparison: None available Findings: The cardiomediastinal silhouette is enlarged. No pneumothorax is seen. There is a retrocardiac airspace opacity. There may be trace bilateral effusions. There is elevation of the right hemidiaphragm. Impression: There is a retrocardiac airspace opacity with possible trace effusions.
[2020-01-05] MEDS ORDERED: NOREPINEPHRINE BITARTRATE INJ/PF 4 MG/4 ML SDV IV ONE ×2 (03:06→07:14)
[2020-01-05] MEDS: DEXTROSE 5%-WATER 250 ML with NOREPINEPHRINE BITARTRATE 4 MG IV PRN ×6 (03:10→12:28)
[2020-01-05 04:35] LABS: APPEARANCE,URINE CLEAR; BILIRUBIN,URINE NEGATIVE (NEGATIVE); COLOR,URINE YELLOW; GLUCOSE, URINE NEGATIVE (NEGATIVE); KETONES,URINE NEGATIVE (NEGATIVE); PROTEIN,URINE NEGATIVE (NEGATIVE); URINE SPECIFIC GRAVITY 1.016
[2020-01-05] MEDS ORDERED: DEXTROSE 5%-WATER 250 ML with VASOPRESSIN 100 UNIT IV PRN ×2 (06:15)
[2020-01-05] MEDS ORDERED: VASOPRESSIN INJ 20 UNIT/1 ML VIAL ONE (06:51)
--- NOTE | 2020-01-05 07:09 | RADIOLOGY REPORT (SQ) ---
EXAM: X-ray shoulder two or more views CLINICAL DATA: 84-year-old male with ecchymosis and right shoulder pain TECHNICAL DATA: Three x-ray views of the right shoulder were performed on 01/05/2020 at 6:41 AM. COMPARISONS: 12/23/2019 FINDINGS: As noted previously, there is a comminuted mildly displaced fracture involving the right humeral head and neck. Findings are similar when compared to the prior study. There are mild hypertrophic changes along the distal right clavicle. No pathologic lytic or sclerotic bone lesions are identified. There does appear to be narrowing of the glenohumeral joint. There is no evidence of dislocation. Bone mineralization is normal. No focal soft tissue abnormalities are identified. IMPRESSION: Similar findings when compared to the prior study revealing a comminuted mildly displaced fracture involving the right humeral head and neck. There are also degenerative changes involving the distal right clavicle and there is mild narrowing of the glenohumeral joint.
[2020-01-05 07:31] LABS: PHOSPHORUS 2.1 mg/dL (2.5-4.5)
[2020-01-05 07:47] LABS: FREE T3 2.77 pg/mL (2.77-5.27); FREE T4 (FREE THYROXINE) 1.45 ng/dL (0.78-2.19)
[2020-01-05 08:00] LABS: THYROID STIMULATING HORMONE 0.92 uIU/mL (0.47-4.68)
[2020-01-05] MEDS ORDERED: DEXTROSE 50%-WATER 25 GM/50 ML DISP.SYRIN IV PRN ×2 (09:46)
[2020-01-05] MEDS ORDERED: DEXTROSE 40% GEL 15 GM TUBE PO PRN ×2 (09:46)
[2020-01-05] MEDS ORDERED: GLUCAGON,HUMAN RECOMB 1 MG INJ IM PRN (09:46)
[2020-01-05] MEDS ORDERED: NORMAL SALINE INJ/PF 0.9% 10 ML SDV IV PRN (10:04)
[2020-01-05] MEDS: ENOXAPARIN SODIUM INJ 40 MG/0.4 ML DISP.SYRIN SUBCUT SCH (10:20)
--- NOTE | 2020-01-05 10:30 | CRITICAL CARE ADMISSION REPORT ---
HPI Date:: 01/05/20 Time:: 05:45 Reason for ICU Reason:: Hypotension requiring vasopressors HPI: Kamaljit Soliman is an 84 year-old male who reportedly presented to [facility] via EMS with a chief complaint of right flank pain that started prior to arrival. EMS reports that the patient appeared diaphoretic and shaky upon their arrival and that he was also seen here on 12/23/2019 for a fall, diagnosed with a right humeral head fracture for which he was prescribed pain medication and is supposed to be wearing a sling for treatment. Per documentation, patient reportedly vomited during transport for which EMS administered pain/nausea medication in addition to 400 ml LR bolus. Patient's oxygen saturation was 88% for EMS for which they placed Mr. 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 Patient denies pain at this time. Denies shortness of breath. I was informed Mr. Arias received a total of 3 L crystalloid IV solution and was placed on norepinephrine which is currently at 14 mcg/min for refractory hypotension. Patient is afebrile, no leukocytosis and is uncertain if he has taken steroids in the past. Mild lactatemia of 2.9 which has already decreased to 2.3. Chest x-ray with possible left retrocardiac opaci ty. Patient mental status has improved since his hospitalization and he now reports he has felt "foggy brained" for the past 3 days. Denies flank pain, no CVA tenderness on exam, all other review of systems are negative. Patient denies any significant past medical history, but admits he doesn't frequently see a PCP. Looking at his history, he may take an anti-depressant, does have BPH which he confirmed and takes meds for, and was at some point on Plavix for possible TIA. History obtained from:: ER physician, patient, RN - Diagnosis/Plan (1) Hypotension Qualifiers: Hypotension type: unspecified hypotension type Qualified Code(s): I95.9 - Hypotension, unspecified Is this a current diagnosis for this admission?: Yes Plan: Already received plenty of crystalloid IV solution for hydration. Systolic ejection fraction may be slightly reduced on bedside POCUS for which we will exercise caution with IV fluids. Will obtain TTE. Check random cortisol and thyroid studies; suspect adrenal insufficiency. Wean Norepinephrine as able for MAP >65 Will add 2nd agent Vasopressin infusion to reduce Norepi. (2) Lactic acidosis Is this a current diagnosis for this admission?: Yes Plan: Trend lactate for total 3 times. No indication for antibiotics at this time. Will monitor for fever and repeat CBC in AM to eval for leukocytosis. (3) Right humeral fracture Qualifiers: Encounter type: sequela Humerus Location: proximal Fracture type: closed Fracture morphology: unspecified fracture morphology Qualified Code(s): S42.201S - Unspecified fracture of upper end of right humerus, sequela Is this a current diagnosis for this admission?: Yes Plan: Sling to RUE for immobilization. Should heal if keeps immobilized for ~8 weeks. May need Vit D & Calcium supplementation. Non-weight bearing RUE. (4) BPH (benign prostatic hyperplasia) Qualifiers: Lower urinary tract symptom presence: unspecified whether lower urinary tract symptoms present Qualified Code(s): N40.0 - Benign prostatic hyperplasia without lower urinary tract symptoms Is this a current diagnosis for this admission?: Yes Plan: Home medication-hold for now due to hypotension. Resume as soon as possible for BPH. Takes Doxazosin and Finasteride. Past Medical History Cardiac Medical History: Reports: Heart Murmur - he has had a known murmur for years Denies: Atrial Fibrillation, Congestive Heart Failure, Coronary Artery D isease, DVT, Myocardial Infarction, Hypertension, Peripheral Vascular Disease, Pulmonary Embolism Pulmonary Medical History: Denies: Asthma, Bronchitis, Chronic Obstructive Pulmonary Disease (COPD), Pneumonia EENT Medical History: Reports: None Neurological Medical History: Reports: Other - possible TIA per medical record review in past Denies: Hemorrhagic CVA, Ischemic CVA, Migraine, Multiple Sclerosis, Seizures Endocrine Medical History: Reports: None Renal/ Medical History: Reports: None Malignancy Medical History: Reports: Skin Cancer - to tip of nose GI Medical History: Reports: Hiatal Hernia Denies: Gastroesophageal Reflux Disease - patient denies, Hepatitis Musculoskeltal Medical History: Reports: None Skin Medical History: Reports: None Psychiatric Medical History: Reports: Depression - possible Hx depression Traumatic Medical History: Reports: None Hematology: Denies: Anemia, Sickle Cell Disease Infectious Medical History: Reports: None Past Surgical History Past Surgical History: Reports: Herniorrhaphy, Orthopedic Surgery - cervical fusion at 3 levels patient reports Denies: Pacemaker Social/Family History - Social History Lives with: Family Smoking Status: Former Smoker Frequency of Alcohol Use: Rare - not even monthly Hx Recreational Drug Use: No - Family History Family History: None - Medication/Allergies Home Medications: Citalopram Hydrobromide [Celexa] 20 mg PO 07/07/11 Clopidogrel Bisulfate [Plavix 75 Mg Tablet] 75 mg PO 07/07/11 Doxazosin Mesylate 4 mg PO 07/07/11 Doxycycline Hyclate [Vibramycin] 50 mg PO 07/07/11 Finasteride [Proscar 5 Mg Tablet] 5 mg PO DAILY 07/07/11 Prednisone [Deltasone 20 mg Tablet] 2 tab PO DAILY 5 Days tablet 03/29/16 Lidocaine [Lidoderm 5% (700 mg) Transdermal Patch] 1 patch TP DAILY #14 adh..patch 12/01/17 Methocarbamol [Robaxin 500 mg Tablet] 500 mg PO TIDP PRN #21 tablet 12/12/19 Hydrocodone/Acetaminophen [[place] 5-325 mg Tablet] 1 tab PO ASDIR PRN #12 tablet 12/23/19 Polyethylene Glycol 3350 [Miralax Powder 17 gm/Packet] 1 packet PO DAILY PRN #1 pkg 12/23/19 Allergies/Adverse Reactions: No Known Allergies Allergy (Verified 12/23/19 02:24) Review of Systems Constitutional: ABSENT: chills, fever(s), headache(s), weight gain, weight loss Eyes: ABSENT: visual disturbances Ears: ABSENT: hearing changes Nose, Mouth, and Throat: ABSENT: headache(s), mouth pain, sore throat, vertigo, other Cardiovascular: ABSENT: chest pain, dyspnea on exertion, edema, orthropnea, palpitations, other Respiratory: ABSENT: cough, dyspnea, hemoptysis, sputum, other Gastrointestinal: ABSENT: abdominal pain, bloating, coffee ground emesis, constipation, diarrhea, dysphagia, heartburn, hematemesis, hematochezia, melena, nausea, vomiting, other Genitourinary: ABSENT: difficulty urinating, dysuria, hematuria, nocturia, other Musculoskeletal: ABSENT: back pain, deformity, joint swelling, muscle weakness, other Integumentary: ABSENT: diaphoresis, erythema, lesions, pruritus, rash, wounds, other Neurological: ABSENT: abnormal gait, abnormal movements, abnormal speech, confusion, convulsions, dizziness, focal weakness, frequent falls, lack of coordination, memory loss, numbness, paresthesias, restless legs, syncope, tingling, tremor(s), vertigo, weakness, other Psychiatric: ABSENT: anxiety, depression, hallucinations, homidical ideation, suicidal ideation, other Endocrine: ABSENT: cold intolerance, flushing, heat intolerance, menstrual abnormalities, polydipsia, polyphagia, polyuria, other Hematologic/Lymphatic: ABSENT: easy bleeding, easy bruising, lymphadenopathy, other Allergic/Immunologic: ABSENT: seasonal rhinorrhea, other Physical Exam Vital Signs: Temp Pulse Resp BP Pulse Ox 98.1 F 15 93/65 L 99 01/05/20 03:50 01/05/20 04:35 01/05/20 04:35 01/05/20 04:35 Intake & Output 01/03/20 01/04/20 01/05/20 06:59 06:59 06:59 Intake Total 3095 Balance 3095 Weight 102.1 kg Weight/Height Weight 102.1 kg Height 6 ft 3 in General appearance: PRESENT: no acute distress, cooperative, well-nourished. ABSENT: severe distress Head exam: PRESENT: atraumatic, normocephalic Eye exam: PRESENT: conjunctiva pink, EOMI, PERRLA. ABSENT: nystagmus, periorbital swelling, scleral icterus Ear exam: PRESENT: normal external ear exam Mouth exam: PRESENT: dry mucosa, neck supple, tongue midline Teeth exam: PRESENT: poor dentation Throat exam: ABSENT: post pharyngeal erythema Neck exam: PRESENT: full ROM. ABSENT: carotid bruit, JVD, lymphadenopathy, tenderness, tracheal deviation Respiratory exam: PRESENT: clear to auscultation rj, symmetrical, unlabored. ABSENT: accessory muscle use, chest wall tenderness, tachypnea, wheezes Cardiovascular exam: PRESENT: RRR, +S1, +S2, systolic murmur - Gr I loudest at apex. ABSENT: gallop, rubs Pulses: PRESENT: normal radial pulses, +2 pedal pulses bilateral Vascular exam: PRESENT: normal capillary refill GI/Abdominal exam: PRESENT: hypoactive bowel sounds, soft. ABSENT: distended, Conroy's sign, tenderness Rectal exam: PRESENT: deferred Gentrourinary exam: ABSENT: erythema, lesions, scrotal swelling, testicular tenderness, indwelling catheter Extremities exam: PRESENT: full ROM, tenderness - RUE where known humeral head fracture is; some associated ecchymosis medially in RUE likely from fall resulting in established fracture. ABSENT: calf tenderness, clubbing, joint swelling, pedal edema Neurological exam: PRESENT: alert, awake, oriented to person, oriented to place, oriented to time, CN II-XII grossly intact Psychiatric exam: PRESENT: appropriate affect Skin exam: PRESENT: dry, intact, normal color, warm. ABSENT: erythema, jaundice Laboratory/Radiographs Laboratory Results: 01/04/20 23:35 01/04/20 23:35 01/04/20 01/04/20 01/04/20 23:35 23:35 23:35 WBC 7.3 RBC 5.05 Hgb 15.0 Hct 44.9 MCV 89 MCH 29.7 MCHC 33.4 RDW 13.7 Plt Count 245 Seg Neutrophils % Not Reportable VBG pH 7.27 L VBG pCO2 62.2 VBG HCO3 28.0 VBG Base Excess -0.4 Sodium 134.5 L Potassium 4.3 Chloride 99 Carbon Dioxide 25 Anion Gap 11 BUN 16 Creatinine 0.86 Est GFR ( Amer) > 60 Glucose 149 H Lactic Acid Calcium 8.5 Total Bilirubin 0.9 AST 32 Alkaline Phosphatase 100 Total Protein 6.9 Albumin 4.0 Urine Color Urine Appearance Urine pH Ur Specific [place] Urine Protein Urine Glucose (UA) Urine Ketones Urine Blood Urine RBC (Auto) 01/04/20 01/05/20 01/05/20 23:35 02:15 02:54 WBC RBC Hgb Hct MCV MCH MCHC RDW Plt Count Seg Neutrophils % VBG pH VBG pCO2 VBG HCO3 VBG Base Excess Sodium Potassium Chloride Carbon Dioxide Anion Gap BUN Creatinine Est GFR ( Amer) Glucose Lactic Acid 2.9 H 2.3 H Calcium Total Bilirubin AST Alkaline Phosphatase Total Protein Albumin Urine Color YELLOW Urine Appearance CLEAR Urine pH 6.0 Ur Specific [place] 1.016 Urine Protein NEGATIVE Urine Glucose (UA) NEGATIVE Urine Ketones NEGATIVE Urine Blood NEGATIVE Urine RBC (Auto) 3 01/04/20 23:35 Troponin I 0.015 All labs, radiographs, diagnostic studies and EKGs were personally reviewed: Yes In addition, reports of radiographic and diagnostic studies were read: Yes Critical Time Critical Time (minutes): 65 -: The care of a critically ill patient is dynamic. This note represents a static moment in the admission process. Orders and treatments may be given simultaneously and urgently, and time is not hospital insurance representative of the treatment process. This patient requires Critical Care secondary to life threatening organ or limb dysfunction. Without Critical Care services, the patient is at risk for increased mortality and morbidity.
--- NOTE | 2020-01-05 10:34 | Operative Report ---
Bedside Procedure - History of Present Illness History of Present Illness: Kamaljit Soliman is an 84 year-old male who reportedly presented to [facility] via EMS with a chief complaint of right flank pain that started prior to arrival. EMS reports that the patient appeared diaphoretic and shaky upon their arrival and that he was also seen here on 12/23/2019 for a fall, diagnosed with a right humeral head fracture for which he was prescribed pain medication and is supposed to be wearing a sling for treatment. Per documentation, patient reportedly vomited during transport for which EMS administered pain/nausea medication in addition to 400 ml LR bolus. Patient's oxygen saturation was 88% for EMS for which they placed Mr. 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 Patient denies pain at this time. Denies shortness of breath. I was informed Mr. Arias received a total of 3 L crystalloid IV solution and was placed on norepinephrine which is currently at 14 mcg/min for refractory hypotension. Patient is afebrile, no leukocytosis and is uncertain if he has taken steroids in the past. Mild lactatemia of 2.9 which has already decreased to 2.3. Chest x-ray with possible left retrocardiac opacity. Patient mental status has improved since his hospitalization and he now reports he has felt "foggy brained" for the past 3 days. Denies flank pain, no CVA tenderness on exam, all other review of systems are negative. PROCEDURE: ARTERIAL LINE INSERTION PROCEDURALIST: JOHANNA TORREZ ANESTHESIA 2 ML 1% LIDOCAINE COMPLICATIONS: NONE Consent obtained and on the chart. Patient placed in proper procedural position followed by prepping and draping in usual sterile fashion. Utilizing ultrasound, the left radial artery was identified and pulsating in usual fashion. An 18-gauge 4.45 cm preloaded catheter on a 20-gauge needle with wire was visualized entering the left radial artery with a return of pulsatile blood. The guidewire was advanced through the needle into the left radial artery and then the catheter was deployed over the wire into the artery. The wire and needle were subsequently removed noting pulsatile blood from the back end of the catheter. Transducer tubing was applied to the catheter in usual fashion, catheter was sutured into place with 1 suture, and a sterile occlusive transparent dressing was applied. Good arterial waveform noted on the monitor. Patient tolerated procedure well. Indication for Procedure: hypotension Date: 01/05/20 Provider: BISI MCHUGH - Central Line Right Internal jugular Time completed: 08:45 Consent obtained: Yes Central line pre-insertion: Sterile PPE donned, Chloraprep applied, Sterile drapes applied Central line size (Fr.): 7 Central line lumen type: Triple Anesthetic type: 1% Lidocaine mL's of anesthesia: 2 Ultrasound guided: Yes CM at insertion site: 17 Line secured with sutures: Yes Central line post-insertion: Blood return from lumens, Biopatch applied, Sutured, Sterile dressing applied, Position confirmed w/ CXR Number of attempts: 1 Complications: No Notes: 01/05/20 10:30 Patient placed in proper procedural position followed by prepping and draping in usual sterile fashion. Utilizing ultrasound, the right internal jugular vein was identified and appeared to be free of thrombus. A 20-gauge introducer needle with attached syringe under negative pressure was visualized entering the right internal jugular vein with a return of blood in the syringe. The syringe was detached, noting a slow passive dripping of blood from the needle. A guidewire was then inserted through the needle into the right internal jugular vein and the needle was removed. The guidewire was confirmed to be in the right internal jugular vein in 2 views on ultrasound. A small stab skin incision was made on top of the wire to prepare for dilation. Dilator was then passed over the wire to dilate the subcutaneous tissue and was subsequently removed. A 7 [place]uv[place] 20 cm catheter was then passed over the wire into the right internal jugular vein and the guidewire was removed, again noting a slow passive dripping of blood from the distal lumen of the catheter. Positive pressure caps were applied, all lumens aspirated and flushed easily, a Biopatch was applied, and the catheter was sutured into place at 17 cm at the skin. Chest x-ray obtained demonstrating successful placement in the SVC with no pneumothorax. Patient tolerated procedure well.
--- NOTE | 2020-01-05 10:58 | EKG REPORT ---
SEVERITY:- DEFECTIVE ECG - SINUS TACHYCARDIA NONSPECIFIC INTRAVENTRICULAR CONDUCTION DELAY : Confirmed by: Denver Huerta MD 05-Jan-2020 10:57:27
[2020-01-05] MEDS ORDERED: CEFTRIAXONE SODIUM 750 MG in DEXTROSE 5%-WATER 50 ML IV SCH (11:00)
--- NOTE | 2020-01-05 11:03 | RADIOLOGY REPORT (SQ) ---
EXAM DESCRIPTION: CHEST SINGLE VIEW IMAGES COMPLETED DATE/TIME: 01/05/2020 10:42 am REASON FOR STUDY: line placement; r/o pneumothorax COMPARISON: AP chest 01/05/2020 EXAM PARAMETERS: NUMBER OF VIEWS: One view. TECHNIQUE: Single frontal radiographic view of the chest acquired. RADIATION DOSE: NA LIMITATIONS: None. FINDINGS: LUNGS AND PLEURA: Minimal lingular bandlike scarring or atelectasis. Lungs otherwise olga r. No pleural effusion or pneumothorax. MEDIASTINUM AND HILAR STRUCTURES: Large retrocardiac hiatal hernia. HEART AND VASCULAR STRUCTURES: Heart normal in size. Normal vasculature. BONES: No acute findings. HARDWARE: Right jugular central line tip superior vena cava, no pneumothorax OTHER: No other significant finding. IMPRESSION: Right jugular central line tip superior vena cava. No pneumothorax TECHNICAL DOCUMENTATION: JOB ID: [id number] 2010 [employer]- All Rights Reserved Reading location - IP/workstation name: [email or web address]
[2020-01-05] MEDS ORDERED: CEFTRIAXONE SODIUM 1,000 MG in DEXTROSE 5%-WATER 50 ML IV SCH (11:30)
[2020-01-05] MEDS: INSULIN REG, HUMAN 100 UNIT/ML 3 ML VIAL (PYX) SUBCUT SCH ×2 (12:27→18:15)
[2020-01-05] MEDS: HYDROCORTISONE SOD SUCCINATE INJ/PF 100 MG/2 ML SDV IV SCH ×2 (13:31→21:03)
[2020-01-05] MEDS: CEFTRIAXONE 1 GM/D5W RTU 1 GM/50 ML RTUPB IV SCH (13:31)
--- NOTE | 2020-01-05 13:45 | XCELERA REPORT ---
[address] [address] Transthoracic Echocardiogram Report Name: CUBA ADAMS Age: 84 yrs Gender: Male : 1935 Patient Status: Inpatient Patient Location: ICU^603^A Study Date: 01/05/2020 11:24 AM Height: 75 in Weight: 235 lb BSA: 2.4 m2 Procedure: A two-dimensional transthoracic echocardiogram with color flow and Doppler was performed. The study was technically limited with all images being suboptimal in quality. Reason For Study: heart failure on 2 vasopressors; Dr Wiley to read History: heart failure. Ordering Physician: BISI MCHUGH Performed By: Monty Clark Interpretation Summary The left ventricle is normal in size. There is normal left ventricular wall thickness. LV EF is > 55% Left ventricular systolic function is normal. Doppler measurements suggest normal left ventricular diastolic function The left ventricular wall motion is normal. There is no thrombus. Cannot assess ASD ,VSD , or PFO. The right ventricle is mild to moderately dilated. The right ventricle is not well visualized secondary to technical limitations The right atrium is mildly dilated. The left atrium is moderately dilated. There is mild to moderate mitral annular calcification. There is no evidence of mitral valve prolapse. There is no mitral valve stenosis. There is a mild amount of mitral regurgitation There is no aortic valvular vegetation. There is aortic sclerosis without aortic stenosis. There is no LVOT obstruction. There is a mild amount of aortic regurgitation There is no tricuspid stenosis. There is a mild to moderate amount of tricuspid regurgitation There is mild to moderate pulmonary hypertension by echo RVSP is 44 to 49 mm of Hg , with RA mean of 15 to 20. There is no pulmonic valvular stenosis. There is a trace amount of pulmonic regurgitation The aortic root is not well visualized but is probably normal size. The inferior vena cava appeared dilated and decreased < 50% with respiration (RAP 15-20 mmHg) There is no pericardial effusion. MMode/2D Measurements & Calculations RVDd: 3.4 cm LVIDd: 6.1 cm FS: 30.3 % Ao root diam: 4.0 cm IVSd: 1.4 cm LVIDs: 4.3 cm EDV(Teich): 187.9 ml Ao root area: 12.7 cm2 LVPWd: 1.0 cm ESV(Teich): 81.4 ml LA dimension: 4.6 cm EF(Teich): 56.7 % Doppler Measurements & Calculations MV E max eddie: MV P1/2t max eddie: Ao V2 max: AI max eddie: 85.9 cm/sec 89.8 cm/sec 98.9 cm/sec 330.1 cm/sec MV A max eddie: MV P1/2t: 69.6 msec Ao max PG: AI max P.6 mmHg 73.1 cm/sec MVA(P1/2t): 3.2 cm2 3.9 mmHg AI dec slope: MV E/A: 1.2 MV dec slope: 234.8 cm/sec2 AI P1/2t: 411.8 msec 377.9 cm/sec2 MV dec time: 0.21 sec LV V1 max PG: PA V2 max: TR max eddie: AV P1/2t-pr_phl: 3.1 mmHg 80.5 cm/sec 266.0 cm/sec 411.8 msec LV V1 max: PA max P.6 mmHg TR max P.4 cm/sec 28.3 mmHg LV dP/dt: 1136 mmHg/s MV P1/2t-pr_phl: 69.6 msec Left Ventricle The left ventricle is normal in size. There is normal left ventricular wall thickness. LV EF is > 55%. Left ventricular systolic function is normal. Doppler measurements suggest normal left ventricular diastolic function. The left ventricular wall motion is normal. There is no thrombus. Cannot assess ASD ,VSD , or PFO. Right Ventricle The right ventricle is mild to moderately dilated. The right ventricle is not well visualized secondary to technical limitations. Atria The right atrium is mildly dilated. The left atrium is moderately dilated. Mitral Valve There is mild to moderate mitral annular calcification. There is no evidence of mitral valve prolapse. There is no mitral valve stenosis. There is a mild amount of mitral regurgitation. Aortic Valve There is no aortic valvular vegetation. There is aortic sclerosis without aortic stenosis. There is no LVOT obstruction. There is a mild amount of aortic regurgitation. Tricuspid Valve There is no tricuspid stenosis. There is a mild to moderate amount of tricuspid regurgitation. There is mild to moderate pulmonary hypertension by echo. RVSP is 44 to 49 mm of Hg , with RA mean of 15 to 20. Pulmonic Valve There is no pulmonic valvular stenosis. There is a trace amount of pulmonic regurgitation. Great Vessels The aortic root is not well visualized but is probably normal size. The inferior vena cava appeared dilated and decreased < 50% with respiration (RAP 15-20 mmHg). Effusions There is no pericardial effusion. : BISI MCHUGH Lakshmi
[2020-01-05] MEDS: PHOSPHORUS #1 250 MG TABLET PO SCH (21:26)
[2020-01-05] MEDS: MAGNESIUM SULFATE/D5W 1 GM/100 ML RTUPB IV SCH ×2 (21:27→22:27)
[2020-01-05] MEDS ORDERED: ACETAMINOPHEN 325 MG TABLET ONE (22:06)
[2020-01-05] MEDS ORDERED: IBUPROFEN 400 MG TABLET PO PRN (22:07)
[2020-01-06] MEDS: DEXTROSE 5%-WATER 250 ML with NOREPINEPHRINE BITARTRATE 4 MG IV PRN ×2
[2020-01-06] MEDS: INSULIN REG, HUMAN 100 UNIT/ML 3 ML VIAL (PYX) SUBCUT SCH ×5 (00:09→23:12)
[2020-01-06] MEDS: PHOSPHORUS #1 250 MG TABLET PO SCH ×2 (03:54→06:07)
[2020-01-06] MEDS: HYDROCORTISONE SOD SUCCINATE INJ/PF 100 MG/2 ML SDV IV SCH ×3 (06:07→21:42)
[2020-01-06] MEDS: ACETAMINOPHEN SOLN 325 MG/10.15 ML UDCUP PO PRN ×2 (06:20→18:55)
[2020-01-06 06:52] LABS: ANION GAP 10 (5-19); BLOOD UREA NITROGEN 29 mg/dL (7-20); CALCIUM 7.9 mg/dL (8.4-10.2); CARBON DIOXIDE 21 mmol/L (22-30); CHLORIDE 104 mmol/L (98-107); GLUCOSE 186 mg/dL (75-110); POTASSIUM 4.2 mmol/L (3.6-5.0)
[2020-01-06 06:53] LABS: HEMATOCRIT 40.5 % (37.9-51.0); HEMOGLOBIN 13.6 g/dL (13.5-17.0); MEAN CORPUSCULAR HEMOGLOBIN 29.4 pg (27.0-33.4); MEAN CORPUSCULAR HGB CONC 33.5 g/dL (32.0-36.0); MEAN CORPUSCULAR VOLUME 88 fl (80-97); PLATELET COUNT 142 10^3/uL (150-450); RED BLOOD COUNT 4.61 10^6/uL (4.35-5.55); RED CELL DISTRIBUTION WIDTH 14.1 % (11.5-14.0)
[2020-01-06 06:57] LABS: ABSOLUTE LYMPHOCYTES# (MANUAL) 0.3 10^3/uL (0.5-4.7); BAND NEUTROPHILS % (MANUAL) 9 % (3-5); BASOPHILS % (MANUAL) 0 % (0-2); EOSINOPHILS % (MANUAL) 0 % (0-6); LYMPHOCYTES % (MANUAL) 1 % (13-45); MONOCYTES % (MANUAL) 3 % (3-13); SEGMENTED NEUTROPHILS % (MAN) 87 % (42-78); TOTAL CELLS COUNTED 100
[2020-01-06 06:58] LABS: ANISOCYTOSIS 1+; PLATELET COMMENT ADEQUATE; POLYCHROMASIA 1+
[2020-01-06] MEDS ORDERED: MEROPENEM 500 MG VIAL IV SCH (07:15)
[2020-01-06] MEDS: MEROPENEM 500 MG in NORMAL SALINE 50 ML IV SCH ×2 (11:00→18:51)
[2020-01-06] MEDS ORDERED: POLYETHYLENE GLYCOL 3350 POWDER 17 GM/1 PACKET PO PRN (11:23)
[2020-01-06] MEDS ORDERED: METHOCARBAMOL 500 MG TABLET PO PRN (11:23)
[2020-01-06] MEDS: CEFTRIAXONE 1 GM/D5W RTU 1 GM/50 ML RTUPB IV SCH (12:00)
--- NOTE | 2020-01-06 13:05 | PDOC CRITICAL CARE PROG REPORT ---
General Date:: 01/06/20 ICU Day:: 2 Hospital Day:: 2 Resuscitation Status: Do Not Resuscitate Events in the past 12 to 24 Hours:: Off vasopressors, back on at lower dose. Review of systems relevant to events:: CV Reason for ICU Addmission:: Hypotension requiring vasopressors - Medications: Medications reviewed and adjusted accordingly: Yes Vasopressors:: Vasopresin, levophed. Sedation:: None. Physical Exam Vital Signs: Temp Pulse Resp BP Pulse Ox 97.9 F 58 L 17 140/80 H 96 01/06/20 08:00 01/06/20 10:00 01/06/20 10:00 01/06/20 10:00 01/06/20 10:00 Intake & Output 01/05/20 01/06/20 01/07/20 06:59 06:59 06:59 Intake Total 3095 941 119 Output Total 101 0 Balance 3095 840 119 Weight 102.1 kg 105.2 kg Weight/Height Weight 105.2 kg Height 6 ft 3 in General appearance: PRESENT: no acute distress, cooperative, thin Head exam: PRESENT: atraumatic, normocephalic Eye exam: PRESENT: conjunctiva pink, EOMI, PERRLA. ABSENT: scleral icterus Ear exam: PRESENT: normal external ear exam Mouth exam: PRESENT: moist, tongue midline Neck exam: ABSENT: carotid bruit, JVD, lymphadenopathy, thyromegaly Respiratory exam: PRESENT: clear to auscultation rj. ABSENT: rales, rhonchi, wheezes Cardiovascular exam: PRESENT: bradycardia GI/Abdominal exam: PRESENT: normal bowel sounds, soft. ABSENT: distended, guarding, mass, organolmegaly, rebound, tenderness Rectal exam: PRESENT: deferred Extremities exam: PRESENT: full ROM. ABSENT: calf tenderness, clubbing, pedal edema Neurological exam: PRESENT: alert, altered, awake, oriented to person, oriented to situation, CN II-XII grossly intact Skin exam: PRESENT: dry, intact, warm. ABSENT: cyanosis, rash Laboratory/Radiographs Laboratory Results: 01/06/20 06:00 01/06/20 06:00 01/06/20 01/06/20 06:00 06:00 WBC 33.9 H* D RBC 4.61 Hgb 13.6 Hct 40.5 MCV 88 MCH 29.4 MCHC 33.5 RDW 14.1 H Plt Count 142 L Seg Neutrophils % Not Reportable Sodium 134.5 L Potassium 4.2 Chloride 104 Carbon Dioxide 21 L Anion Gap 10 BUN 29 H Creatinine 0.95 Est GFR ( Amer) > 60 Glucose 186 H Calcium 7.9 L 01/04/20 23:35 Blood Blood Culture (PCR) - Final Escherichia Coli 01/05/20 02:15 Blood Blood Culture (PCR) - Final Escherichia Coli 01/04/20 23:35 Troponin I 0.015 Impressions: Shoulder X-Ray 01/05/20 05:53 IMPRESSION: Similar findings when compared to the prior study revealing a comminuted mildly displaced fracture involving the right humeral head and neck. There are also degenerative changes involving the distal right clavicle and there is mild narrowing of the glenohumeral joint. All labs, radiographs, diagnostic studies and EKGs were personally reviewed: Yes In addition, reports of radiographic and diagnostic studies were read: Yes Assessment and Plan - Diagnosis (1) Hypotension Qualifiers: Hypotension type: orthostatic hypotension Qualified Code(s): I95.1 - Orthostatic hypotension Is this a current diagnosis for this admission?: Yes Plan: He is both bacteremic and hypoadrenal, so it is a mixed hypotension. There dose not seem to be an element of septic shock. He is back on a low dose vasopressin and levophed but it is being actively titrated. (2) BPH (benign prostatic hyperplasia) Qualifiers: Lower urinary tract symptom presence: unspecified whether lower urinary tract symptoms present Qualified Code(s): N40.0 - Benign prostatic hyperplasia without lower urinary tract symptoms Is this a current diagnosis for this admission?: Yes Plan: He is able to pass urine while standing and does not seem to have a UTI, despite E coli bacteremia (3) Right humeral fracture Qualifiers: Encounter type: sequela Humerus Location: proximal Fracture type: closed Fracture morphology: unspecified fracture morphology Qualified Code(s): S4 2.201S - Unspecified fracture of upper end of right humerus, sequela Is this a current diagnosis for this admission?: Yes Plan: Recent but not new. Treat with sling for now (4) Bacteremia Is this a current diagnosis for this admission?: Yes Plan: This is E coli. The source is not known. He has BPH but a clean urine. No discernable bowel pathology. Treated with meropenem. (5) Hypoadrenalism Is this a current diagnosis for this admission?: Yes Plan: His cortisol is low but not remarkably low. He is on stress dose steroids. (6) Lactic acidosis Is this a current diagnosis for this admission?: Yes Plan: Mild and trending down. (7) Leukocytosis Qualifiers: Leukocytosis type: leukemoid reaction Qualified Code(s): D72.823 - Leukemoid reaction Is this a current diagnosis for this admission?: Yes Plan: His WBC has gone from 7 to 33K in a day. He is on steroids but is also bacteremic. Plan Summary: He seems quite stable but still needing pressors. When they are weaned off he m ay be downgraded to the regular floor to complete his antibiotic cours Critical Time Critical Time (minutes): 35 Level of Care: ICU Anticipated discharge: Home with Homehealth Within: Other -: 1. The care of a critical patient is a dynamic process. This note is a sales and merchandising representative synopsis but static in nature. The timeframe for treatments given in order is not necessarily the actual time these treatments may have been done. 2. This patient requires critical care secondary to ongoing requirements for therapy not offered or safe outside the critical care environment. Transfer to a lower level of care will result in altered life or limb morbidity and mortality. 3. Multidisciplinary rounds completed. 4. ABCDE bundle addressed.
[2020-01-06] MEDS: ENOXAPARIN SODIUM INJ 40 MG/0.4 ML DISP.SYRIN SUBCUT SCH (13:25)
[2020-01-06] MEDS: FINASTERIDE 5 MG TABLET PO SCH (13:28)
[2020-01-06] MEDS: ARIPIPRAZOLE 2 MG TABLET PO SCH (13:28)
[2020-01-06] MEDS: HYDROCODONE/ACETAMINOPHEN 5-325 MG TABLET PO PRN (13:28)
[2020-01-06] MEDS: MIDODRINE HCL 5 MG TABLET PO SCH (18:51)
[2020-01-06] MEDS: OXYCODONE HCL IR 5 MG TABLET PO PRN (18:55)
[2020-01-06] MEDS ORDERED: PHOSPHORUS #1 250 MG TABLET PO ONE (20:30)
[2020-01-07] MEDS: MEROPENEM 500 MG in NORMAL SALINE 50 ML IV SCH (01:41)
[2020-01-07 03:41] LABS: WHITE BLOOD COUNT 33.9 10^3/uL (4.0-10.5)
[2020-01-07] MEDS: HYDROCORTISONE SOD SUCCINATE INJ/PF 100 MG/2 ML SDV IV SCH ×3 (06:07→22:15)
[2020-01-07] MEDS: INSULIN REG, HUMAN 100 UNIT/ML 3 ML VIAL (PYX) SUBCUT SCH ×4 (06:14→23:44)
[2020-01-07 07:15] LABS: ANION GAP 8 (5-19); BLOOD UREA NITROGEN 43 mg/dL (7-20); CALCIUM 7.8 mg/dL (8.4-10.2); CARBON DIOXIDE 25 mmol/L (22-30); CHLORIDE 100 mmol/L (98-107); GLUCOSE 99 mg/dL (75-110); POTASSIUM 3.8 mmol/L (3.6-5.0)
[2020-01-07 07:17] LABS: HEMATOCRIT 37.8 % (37.9-51.0); HEMOGLOBIN 12.6 g/dL (13.5-17.0); MEAN CORPUSCULAR HEMOGLOBIN 29.1 pg (27.0-33.4); MEAN CORPUSCULAR HGB CONC 33.3 g/dL (32.0-36.0); MEAN CORPUSCULAR VOLUME 88 fl (80-97); PLATELET COUNT 121 10^3/uL (150-450); RED BLOOD COUNT 4.32 10^6/uL (4.35-5.55); RED CELL DISTRIBUTION WIDTH 14.3 % (11.5-14.0); WHITE BLOOD COUNT 26.7 10^3/uL (4.0-10.5)
[2020-01-07 07:40] LABS: ABSOLUTE LYMPHOCYTES# (MANUAL) 1.1 10^3/uL (0.5-4.7); ABSOLUTE MONOCYTES # (MANUAL) 0.3 10^3/uL (0.1-1.4); BAND NEUTROPHILS % (MANUAL) 1 % (3-5); BASOPHILS % (MANUAL) 0 % (0-2); EOSINOPHILS % (MANUAL) 0 % (0-6); LYMPHOCYTES % (MANUAL) 4 % (13-45); MONOCYTES % (MANUAL) 1 % (3-13); SEGMENTED NEUTROPHILS % (MAN) 94 % (42-78); TOTAL CELLS COUNTED 100
[2020-01-07 07:41] LABS: ANISOCYTOSIS SLIGHT; POIKILOCYTOSIS SLIGHT; POLYCHROMASIA SLIGHT; TOXIC GRANULATION SLIGHT; TOXIC VACUOLATION PRESENT
[2020-01-07 07:42] LABS: BURR CELLS SLIGHT; OVALOCYTES SLIGHT; PLATELET COMMENT DECREASED
[2020-01-07] MEDS: CEFTRIAXONE 1 GM/D5W RTU 1 GM/50 ML RTUPB IV SCH (10:25)
[2020-01-07] MEDS: ENOXAPARIN SODIUM INJ 40 MG/0.4 ML DISP.SYRIN SUBCUT SCH (10:25)
[2020-01-07] MEDS: MIDODRINE HCL 5 MG TABLET PO SCH ×2 (10:25→17:27)
[2020-01-07] MEDS: FINASTERIDE 5 MG TABLET PO SCH (10:26)
[2020-01-07] MEDS: SERTRALINE HCL 50 MG TABLET PO SCH (10:26)
[2020-01-07] MEDS: ARIPIPRAZOLE 2 MG TABLET PO SCH (10:29)
[2020-01-07] MEDS: FAMOTIDINE INJ/PF 20 MG/2 ML SDV IV SCH ×2 (10:32→22:14)
[2020-01-07 11:37] LABS: PATH REVIEW PATHOLOGIST REVIEWED
--- NOTE | 2020-01-07 17:55 | PDOC CRITICAL CARE PROG REPORT ---
General Date:: 01/07/20 ICU Day:: 3 Hospital Day:: 3 Resuscitation Status: Do Not Resuscitate Events in the past 12 to 24 Hours:: Awake, alert and in good spirits. Currently off vasopressors. On Rocephin/meropenem for E. coli bacteremia (RESISTANT to penicillin, cefazolin, quinolones, tetracycline, Bactrim). WBC 7.3>33.9>26.7. Of note, spike in WBC count also coincides with initiation of stress dose steroids. Currently on Solu-Cortef 100 mg IV every 8 hours. DVT PROPHYLAXIS: Lovenox. GI PROPHYLAXIS: Start famotidine. Review of systems relevant to events:: CV Reason for ICU Addmission:: Hypotension requiring vasopressors - Medications: Medications reviewed and adjusted accordingly: Yes Vasopressors:: Currently off vasopressors (since 499) Physical Exam Vital Signs: Temp Pulse Resp BP Pulse Ox 97.8 F 58 L 13 95/59 L 99 01/07/20 08:00 01/07/20 08:00 01/07/20 10:00 01/06/20 18:00 01/07/20 10:00 Intake & Output 01/06/20 01/07/20 01/08/20 06:59 06:59 06:59 Intake Total 941 287 240 Output Total 101 1 400 Balance 840 286 -160 Weight 105.2 kg 106.8 kg Weight/Height Weight 106.8 kg Height 1.91 m General appearance: PRESENT: no acute distress, well-developed, well-nourished Head exam: PRESENT: atraumatic, normocephalic Mouth exam: PRESENT: moist, tongue midline Neck exam: ABSENT: carotid bruit, JVD, lymphadenopathy, thyromegaly Respiratory exam: PRESENT: clear to auscultation rj. ABSENT: rales, rhonchi, wheezes Cardiovascular exam: PRESENT: RRR. ABSENT: diastolic murmur, rubs, systolic murmur GI/Abdominal exam: PRESENT: normal bowel sounds, soft. ABSENT: distended, guarding, mass, organolmegaly, rebound, tenderness Extremities exam: PRESENT: full ROM, other - Right humerus fracture, in sling. ABSENT: calf tenderness, clubbing, pedal edema Neurological exam: PRESENT: alert, awake, oriented to person, oriented to place, oriented to time, oriented to situation, CN II-XII grossly intact. ABSENT: motor sensory deficit Tubes/Lines: PRESENT: Arterial Catheter - L radial Laboratory/Radiographs Laboratory Results: 01/07/20 06:15 01/07/20 06:15 01/06/20 01/07/20 01/07/20 06:00 06:15 06:15 WBC 33.9 H* D 26.7 H RBC 4.32 L Hgb 12.6 L Hct 37.8 L MCV 88 MCH 29.1 MCHC 33.3 RDW 14.3 H Plt Count 121 L Seg Neutrophils % Not Reportable Sodium 132.6 L Potassium 3.8 Chloride 100 Carbon Dioxide 25 Anion Gap 8 BUN 43 H Creatinine 0.85 Est GFR ( Amer) > 60 Glucose 99 Calcium 7.8 L Phosphorus 3.0 01/05/20 02:15 Blood Blood Culture (PCR) - Final Escherichia Coli 01/04/20 23:35 Blood Blood Culture (PCR) - Final Escherichia Coli 01/04/20 23:35 Troponin I 0.015 Impressions: Shoulder X-Ray 01/05/20 05:53 IMPRESSION: Similar findings when compared to the prior study revealing a comminuted mildly displaced fracture involving the right humeral head and neck. There are also degenerative changes involving the distal right clavicle and there is mild narrowing of the glenohumeral joint. All labs, radiographs, diagnostic studies and EKGs were personally reviewed: Yes In addition, reports of radiographic and diagnostic studies were read: Yes Assessment and Plan - Diagnosis (1) E coli bacteremia Is this a current diagnosis for this admission?: Yes Plan: Continue Rocephin. Stop meropenem. (2) Hypoadrenalism Is this a current diagnosis for this admission?: Yes Plan: Continue Solu Cortef 100 mg IV every 8 hours. (3) Hypotension Qualifiers: Hypotension type: orthostatic hypotension Qualified Code(s): I95.1 - Orthostatic hypotension Is this a current diagnosis for this admission?: Yes Plan: Currently, normotensive. Off vasopressors. On stress dose steroids. Continue to monitor blood pressure. (4) Leukocytosis Qualifiers: Leukocytosis type: leukemoid reaction Qualified Code(s): D72.823 - Leukemoid reaction Is this a current diagnosis for this admission?: Yes Plan: WBC count is downtrending. (5) Right humeral fracture Qualifiers: Encounter type: sequela Humerus Location: proximal Fracture type: closed Fracture morphology: unspecified fracture morphology Qualified Code(s): S42.201S - Unspecified fracture of upper end of right humerus, sequela Is this a current diagnosis for this admission?: Yes Critical Time Critical Time (minutes): 45 Level of Care: ICU -: 1. The care of a critical patient is a dynamic process. This note is a livestock sales representative synopsis but static in nature. The timeframe for treatments given in order is not necessarily the actual time these treatments may have been done. 2. This patient requires critical care secondary to ongoing requirements for therapy not offered or safe outside the critical care environment. Transfer to a lower level of care will result in altered life or limb morbidity and mort ality. 3. Multidisciplinary rounds completed. 4. ABCDE bundle addressed.
[2020-01-08] MEDS: ACETAMINOPHEN SOLN 325 MG/10.15 ML UDCUP PO PRN ×2 (02:20→08:35)
[2020-01-08 04:11] LABS: HEMATOCRIT 38.3 % (37.9-51.0); HEMOGLOBIN 12.9 g/dL (13.5-17.0); MEAN CORPUSCULAR HEMOGLOBIN 29.2 pg (27.0-33.4); MEAN CORPUSCULAR HGB CONC 33.7 g/dL (32.0-36.0); MEAN CORPUSCULAR VOLUME 87 fl (80-97); PLATELET COUNT 121 10^3/uL (150-450); RED BLOOD COUNT 4.43 10^6/uL (4.35-5.55); RED CELL DISTRIBUTION WIDTH 14.1 % (11.5-14.0); WHITE BLOOD COUNT 20.4 10^3/uL (4.0-10.5)
[2020-01-08 04:30] LABS: ANION GAP 5 (5-19); BLOOD UREA NITROGEN 41 mg/dL (7-20); CALCIUM 7.9 mg/dL (8.4-10.2); CARBON DIOXIDE 27 mmol/L (22-30); CHLORIDE 101 mmol/L (98-107); GLUCOSE 132 mg/dL (75-110)
[2020-01-08 04:42] LABS: ABSOLUTE LYMPHOCYTES# (MANUAL) 1.2 10^3/uL (0.5-4.7); ABSOLUTE MONOCYTES # (MANUAL) 0.6 10^3/uL (0.1-1.4); BASOPHILS % (MANUAL) 0 % (0-2); EOSINOPHILS % (MANUAL) 0 % (0-6); LYMPHOCYTES % (MANUAL) 6 % (13-45); MONOCYTES % (MANUAL) 3 % (3-13); SEGMENTED NEUTROPHILS % (MAN) 91 % (42-78); TOTAL CELLS COUNTED 100
[2020-01-08 04:43] LABS: ANISOCYTOSIS SLIGHT; BURR CELLS SLIGHT; PLATELET COMMENT DECREASED; TOXIC GRANULATION 1+
[2020-01-08] MEDS: HYDROCORTISONE SOD SUCCINATE INJ/PF 100 MG/2 ML SDV IV SCH ×3 (06:05→22:05)
[2020-01-08] MEDS: INSULIN REG, HUMAN 100 UNIT/ML 3 ML VIAL (PYX) SUBCUT SCH ×4 (07:05→21:49)
[2020-01-08] MEDS ORDERED: HALOPERIDOL LACTATE INJ 5 MG/1 ML VIAL IV PRN (07:58)
[2020-01-08] MEDS ORDERED: HALOPERIDOL 2 MG TABLET PO PRN ×2 (08:12→08:14)
[2020-01-08] MEDS: FAMOTIDINE INJ/PF 20 MG/2 ML SDV IV SCH ×2 (10:30→22:05)
[2020-01-08] MEDS: ARIPIPRAZOLE 2 MG TABLET PO SCH (10:30)
[2020-01-08] MEDS: ENOXAPARIN SODIUM INJ 40 MG/0.4 ML DISP.SYRIN SUBCUT SCH (10:30)
[2020-01-08] MEDS: SERTRALINE HCL 50 MG TABLET PO SCH (10:31)
[2020-01-08] MEDS: FINASTERIDE 5 MG TABLET PO SCH (10:31)
[2020-01-08] MEDS: MIDODRINE HCL 5 MG TABLET PO SCH ×2 (10:31→17:54)
--- NOTE | 2020-01-08 11:02 | PDOC CRITICAL CARE PROG REPORT ---
General Date:: 01/08/20 ICU Day:: 4 Hospital Day:: 4 Resuscitation Status: Do Not Resuscitate Events in the past 12 to 24 Hours:: Awake, alert and in good spirits. Currently off vasopressors. On Rocephin/meropenem for E. coli bacteremia (RESISTANT to penicillin, cefazolin, quinolones, tetracycline, Bactrim). WBC 7.3>33.9>26.7. Of note, spike in WBC count also coincides with initiation of stress dose steroids. Currently on Solu-Cortef 100 mg IV every 8 hours. DVT PROPHYLAXIS: Lovenox. GI PROPHYLAXIS: Start famotidine. 01/07: Awake, alert. Actually, out of the bed, listening to his music and dancing around in the room. Pleasantly confused. Nursing staff reports that the patient removed his central line overnight. No peripheral IV access at this time. Not hallucinating, but confused. He believes that he had an appointment to see me at 10:45 PM last night. He states that he was early to his appointment and checked in with the nursing staff. He states they were less than hospitable about him showing up early. Apologizes for his behavior. Or iented to time, person and place. Right arm is no longer in his sling (despite right humeral head fracture). Still on Rocephin for E. coli bacteremia. WBC 26.7>20.4. Sodium 133. Review of systems relevant to events:: Cardiovascular: Hypertension, resolved; neurologic: Confusion/delirium: Musculoskeletal: Right humerus fracture. Reason for ICU Addmission:: Hypotension requiring vasopressors - Medications: Medications reviewed and adjusted accordingly: Yes Physical Exam Vital Signs: Temp Pulse Resp BP Pulse Ox 97.3 F 55 L 15 128/115 H 96 01/08/20 03:26 01/07/20 20:00 01/08/20 05:00 01/08/20 04:43 01/08/20 04:42 Intake & Output 01/07/20 01/08/20 01/09/20 06:59 06:59 06:59 Intake Total 287 724 Output Total 1 3968 Balance 286 -1401 Weight 106.8 kg 105.9 kg Weight/Height Weight 105.9 kg Height 1.91 m General appearance: PRESENT: no acute distress, well-developed, well-nourished Head exam: PRESENT: atraumatic, normocephalic Eye exam: PRESENT: conjunctiva pink, EOMI, PERRLA. ABSENT: scleral icterus Mouth exam: PRESENT: moist, tongue midline Neck exam: ABSENT: carotid bruit, JVD, lymphadenopathy, thyromegaly Respiratory exam: PRESENT: clear to auscultation rj. ABSENT: rales, rhonchi, wheezes Cardiovascular exam: PRESENT: RRR. ABSENT: diastolic murmur, rubs, systolic murmur GI/Abdominal exam: PRESENT: normal bowel sounds, soft. ABSENT: distended, guarding, mass, organolmegaly, rebound, tenderness Extremities exam: PRESENT: full ROM. ABSENT: calf tenderness, clubbing, pedal edema Neurological exam: PRESENT: alert, awake, oriented to person, oriented to place, oriented to time, CN II-XII grossly intact, normal gait. ABSENT: oriented to situation, motor sensory deficit Psychiatric exam: PRESENT: appropriate affect, other - Confused. ABSENT: agitated, anxious Focused psych exam: PRESENT: delusional. ABSENT: paranoid, pressured speech, psychomotor agitation Skin exam: PRESENT: dry, intact, warm. ABSENT: cyanosis, rash Laboratory/Radiographs Laboratory Results: 01/08/20 04:00 01/08/20 04:00 01/08/20 01/08/20 04:00 04:00 WBC 20.4 H RBC 4.43 Hgb 12.9 L Hct 38.3 MCV 87 MCH 29.2 MCHC 33.7 RDW 14.1 H Plt Count 121 L Seg Neutrophils % Not Reportable Sodium 132.9 L Potassium 4.0 Chloride 101 Carbon Dioxide 27 Anion Gap 5 BUN 41 H Creatinine 0.89 Est GFR ( Amer) > 60 Glucose 132 H Calcium 7.9 L 01/05/20 02:15 Blood Blood Culture (PCR) - Final Escherichia Coli 01/05/20 02:15 Blood Blood Culture - Final Escherichia Coli 01/04/20 23:35 Blood Blood Culture (PCR) - Final Escherichia Coli 01/04/20 23:35 Blood Blood Culture - Final Escherichia Coli 01/04/20 01/07/20 23:35 18:15 Troponin I 0.015 NT-Pro-B Natriuret Pep 7420 H Impressions: Shoulder X-Ray 01/05/20 05:53 IMPRESSION: Similar findings when compared to the prior study revealing a comminuted mildly displaced fracture involving the right humeral head and neck. There are also degenerative changes involving the distal right clavicle and there is mild narrowing of the glenohumeral joint. All labs, radiographs, diagnostic studies and EKGs were personally reviewed: Yes In addition, reports of radiographic and diagnostic studies were read: Yes Assessment and Plan - Diagnosis (1) E coli bacteremia Is this a current diagnosis for this admission?: Yes Plan: Continue Rocephin. In light of the sensitivity profile for this strain of E. coli, I hesitate to use a p.o. medication. (2) Hypoadrenalism Is this a current diagnosis for this admission?: Yes Plan: Increase Solu-Cortef to 50 mg IV every 8 hours. (3) Hypotension Qualifiers: Hypotension type: orthostatic hypotension Qualified Code(s): I95.1 - Orthostatic hypotension Is this a current diagnosis for this admission?: Yes Plan: Currently, normotensive. Off vasopressors. Decrease stress dose steroids. C ontinue to monitor blood pressure. (4) Leukocytosis Qualifiers: Leukocytosis type: leukemoid reaction Qualified Code(s): D72.823 - Leukemoid reaction Is this a current diagnosis for this admission?: Yes (5) Right humeral fracture Qualifiers: Encounter type: sequela Humerus Location: proximal Fracture type: closed Fracture morphology: unspecified fracture morphology Qualified Code(s): S42.201S - Unspecified fracture of upper end of right humerus, sequela Is this a current diagnosis for this admission?: Yes (6) Delirium Is this a current diagnosis for this admission?: Yes Plan: Trial of Haldol 2 mg p.o. (7) Elevated brain natriuretic peptide (BNP) level Is this a current diagnosis for this admission?: Yes Plan: Clinically however, the patient appears to be on the dry side. (8) Hyponatremia Is this a current diagnosis for this admission?: Yes Plan: Mild. Monitor serum sodium. Be secondary to right humeral head fracture or elevated BNP. Critical Time Critical Time (minutes): 60 Level of Care: ICU -: 1. The care of a critical patient is a dynamic process. This note is a passenger relations representative synopsis but static in nature. The timeframe for treatments given in order is not necessarily the actual time these treatments may have been done. 2. This patient requires critical care secondary to ongoing requirements for therapy not offered or safe outside the critical care environment. Transfer to a lower level of care will result in altered life or limb morbidity and mortality. 3. Multidisciplinary rounds completed. 4. ABCDE bundle addressed.
[2020-01-08] MEDS: CEFTRIAXONE 1 GM/D5W RTU 1 GM/50 ML RTUPB IV SCH (11:12)
--- NOTE | 2020-01-08 18:21 | Progress Note ---
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 coli bacteremia without source. Patient did require vasopressors x48 hours. H&P and progress note; vital signs, laboratory results, imaging reports, and orders reviewed. Agree with the plan of care as previously established. In addition, we will repeat urinalysis with reflex culture. Repeat blood cultures to demonstrate clearance of the E. coli bacteremia. Request infectious disease consult. Consider further shoulder and abdominal imaging to evaluate for occult source of E. coli. 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 Discharge planning consulted. Sitter for safety.
[2020-01-08] MEDS: HYDROCODONE/ACETAMINOPHEN 5-325 MG TABLET PO PRN (19:38)
[2020-01-09] MEDS: HYDROCORTISONE SOD SUCCINATE INJ/PF 100 MG/2 ML SDV IV SCH ×2 (05:18→21:14)
[2020-01-09 06:26] LABS: APPEARANCE,URINE CLEAR; BILIRUBIN,URINE NEGATIVE (NEGATIVE); COLOR,URINE STRAW; GLUCOSE, URINE NEGATIVE (NEGATIVE); KETONES,URINE NEGATIVE (NEGATIVE); PROTEIN,URINE NEGATIVE (NEGATIVE); URINE SPECIFIC GRAVITY 1.005; UROBILINOGEN,URINE NEGATIVE mg/dL (<2.0)
[2020-01-09 06:53] LABS: HEMATOCRIT 40.3 % (37.9-51.0); HEMOGLOBIN 13.6 g/dL (13.5-17.0); MEAN CORPUSCULAR HEMOGLOBIN 29.3 pg (27.0-33.4); MEAN CORPUSCULAR HGB CONC 33.8 g/dL (32.0-36.0); MEAN CORPUSCULAR VOLUME 87 fl (80-97); PLATELET COUNT 118 10^3/uL (150-450); RED BLOOD COUNT 4.66 10^6/uL (4.35-5.55); WHITE BLOOD COUNT 13.1 10^3/uL (4.0-10.5)
[2020-01-09 07:14] LABS: ANION GAP 5 (5-19); BLOOD UREA NITROGEN 38 mg/dL (7-20); CALCIUM 8.1 mg/dL (8.4-10.2); CARBON DIOXIDE 27 mmol/L (22-30); CHLORIDE 106 mmol/L (98-107); GLUCOSE 117 mg/dL (75-110); POTASSIUM 3.8 mmol/L (3.6-5.0)
[2020-01-09] MEDS: INSULIN REG, HUMAN 100 UNIT/ML 3 ML VIAL (PYX) SUBCUT SCH ×3 (08:20→16:50)
[2020-01-09] MEDS: MIDODRINE HCL 5 MG TABLET PO SCH ×2 (10:35→17:42)
[2020-01-09] MEDS: FINASTERIDE 5 MG TABLET PO SCH (10:35)
[2020-01-09] MEDS: FAMOTIDINE INJ/PF 20 MG/2 ML SDV IV SCH ×2 (10:36→21:14)
[2020-01-09] MEDS: ARIPIPRAZOLE 2 MG TABLET PO SCH (10:36)
[2020-01-09] MEDS: SERTRALINE HCL 50 MG TABLET PO SCH (10:36)
[2020-01-09] MEDS: CEFTRIAXONE 1 GM/D5W RTU 1 GM/50 ML RTUPB IV SCH (10:36)
[2020-01-09] MEDS: ENOXAPARIN SODIUM INJ 40 MG/0.4 ML DISP.SYRIN SUBCUT SCH (10:47)
--- NOTE | 2020-01-09 13:31 | PDOC PROGRESS REPORT ---
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 coli bacteremia without source. Patient did require vasopressors x48 hours. Patient was seen on afternoon rounds shortly after eating his lunch, he was found sitting up to the recliner, comfortably, on room air. He is oriented x4 today and appears quite lucid. He does have periods of confusion/wandering, but is easily redirected; no concerning events overnight per nursing. Patient tells me that he is feeling well; hopeful to discharge to home soon. He reports that his sister lives across the street and his daughters are nearby, however, he does live independently. He denies fever, chills, chest pain, palpitations, dyspnea, cough, abdominal pain, nausea vomiting diarrhea. He reports good appetite. He does endorse generalized weakness and fatigue. No concerns per nursing Reason For Visit: HYPOTENSION REQUIRING VASOPRESSORS Physical Exam Vital Signs: Temp Pulse Resp BP Pulse Ox 97.5 F 56 L 14 126/72 H 99 01/09/20 07:55 01/09/20 07:55 01/09/20 07:55 01/09/20 07:55 01/09/20 07:55 Intake & Output 01/08/20 01/09/20 01/10/20 06:59 06:59 06:59 Intake Total 774 950 50 Output Total 2125 700 Balance -1351 250 50 Weight 105.9 kg 101.7 kg General appearance: PRESENT: no acute distress, cooperative, well-developed, well-nourished Head exam: PRESENT: atraumatic, normocephalic Eye exam: PRESENT: conjunctiva pink, EOMI, PERRLA. ABSENT: scleral icterus Ear exam: PRESENT: normal external ear exam Mouth exam: PRESENT: moist, tongue midline Respiratory exam: PRESENT: clear to auscultation rj, symmetrical, unlabored. ABSENT: rales, rhonchi, wheezes Cardiovascular exam: PRESENT: RRR, +S1, +S2. ABSENT: diastolic murmur, rubs, systolic murmur Vascular exam: PRESENT: normal capillary refill Extremities exam: PRESENT: full ROM. ABSENT: calf tenderness, clubbing, pedal edema Musculoskeletal exam: PRESENT: ambulatory Neurological exam: PRESENT: alert, awake, oriented to person, oriented to place, oriented to time, oriented to situation, CN II-XII grossly intact, other - Intermittent confusion. ABSENT: motor sensory deficit Psychiatric exam: PRESENT: appropriate affect, normal mood. ABSENT: homicidal ideation, suicidal ideation Skin exam: PRESENT: dry, intact, warm. ABSENT: cyanosis, rash Results Laboratory Results: 01/09/20 06:32 01/09/20 06:32 01/09/20 01/09/20 01/09/20 05:20 06:32 06:32 WBC 13.1 H RBC 4.66 Hgb 13.6 Hct 40.3 MCV 87 MCH 29.3 MCHC 33.8 RDW 14.0 Plt Count 118 L Sodium 137.8 Potassium 3.8 Chloride 106 Carbon Dioxide 27 Anion Gap 5 BUN 38 H Creatinine 0.90 Est GFR ( Amer) > 60 Glucose 117 H Calcium 8.1 L Urine Color STRAW Urine Appearance CLEAR Urine pH 7.0 Ur Specific [place] 1.005 Urine Protein NEGATIVE Urine Glucose (UA) NEGATIVE Urine Ketones NEGATIVE Urine Blood SMALL H 01/04/20 01/07/20 23:35 18:15 Troponin I 0.015 NT-Pro-B Natriuret Pep 7420 H Impressions: Shoulder X-Ray 01/05/20 05:53 IMPRESSION: Similar findings when compared to the prior study revealing a comminuted mildly displaced fracture involving the right humeral head and neck. There are also degenerative changes involving the distal right clavicle and there is mild narrowing of the glenohumeral joint. Assessment and Plan - Diagnosis (1) E coli bacteremia Is this a current diagnosis for this admission?: Yes Plan: Blood cultures (4 4 bottles) positive for E. coli bacteremia with numerous resistances. Repeat cultures (01/09/2020) pending. Urinalysis negative x2. No clear source of infection. Continue IV Rocephin. Infectious disease consulted. (2) Hypotension Qualifiers: Hypotension type: orthostatic hypotension Qualified Code(s): I95.1 - Orthostatic hypotension Is this a current diagnosis for this admission?: Yes Plan: Resolved; secondary to sepsis related to E. coli bacteremia, unknown source, present on admission. Currently, normotensive. Off vasopressors. Continue weaning stress dose steroids. Continue to monitor blood pressure. (3) Hypoadrenalism Is this a current diagnosis for this admission?: Yes Plan: AM cortisol 29 Continue weaning Solu-Cortef (4) Leukocytosis Qualifiers: Leukocytosis type: leukemoid reaction Qualified Code(s): D72.823 - Leukemoid reaction Is this a current diagnosis for this admission?: Yes Plan: WBC count is downtrending. T-max 101.7 at admission; has been afebrile since. No identified source of infection at this point. Cultures and antibiotics as above. (5) Right humeral fracture Qualifiers: Encounter type: sequela Humerus Location: proximal Fracture type: closed Fracture morphology: unspecified fracture morphology Qualified Code(s): S42.201S - Unspecified fracture of upper end of right humerus, sequela Is this a current diagnosis for this admission?: Yes Plan: Recent but not new. Treat with sling for now Analgesics as needed. Nonpharmacological interventions (6) BPH (benign prostatic hyperplasia) Qualifiers: Lower urinary tract symptom presence: unspecified whether lower urinary tract symptoms present Qualified Code(s): N40.0 - Benign prostatic hyperplasia without lower urinary tract symptoms Is this a current diagnosis for this admission?: Yes Plan: Continue home dose Cardura and Proscar (7) Delirium Is this a current diagnosis for this admission?: Yes Plan: Improved; continues to have periods of pleasant confusion. Possibly related to ICU admission and steroid therapy for adrenal insufficiency. Likely a component of underlying early dementia. Continue home dose Abilify and Zoloft. Supportive care. (8) Hyponatremia Is this a current diagnosis for this admission?: Yes Plan: Resolved. (9) Elevated brain natriuretic peptide (BNP) level Is this a current diagnosis for this admission?: Yes Plan: proBNP 7k Currently euvolemic; not in heart failure at this time. (10) Sepsis Qualifiers: Sepsis type: Escherichia coli Sepsis acute organ dysfunction status: unspecified Qualified Code(s): A41.51 - Sepsis due to Escherichia coli [E. coli] Is this a current diagnosis for this admission?: Yes Plan: Resolved. IV fluids and pressor support while in ICU. Cultures and antibiotics as above. - Time Time Spent with patient: 25-34 minutes Medications reviewed and adjusted accordingly: Yes Anticipated discharge: Home with Homehealth
--- NOTE | 2020-01-09 16:46 | Progress Note ---
Provider Note Provider Note: [facility] Telephone Advice Consultation Chart reviewed. Patient is a 84-year-old man with history of dementia, BPH, depression, who recently suffered a fall was admitted and found with E coli bacteremia. The source was not identified. He presented with fever, chills and right flank pain. He was hypotensive on admission requiring vasopressors. He was started on meropenem at that time. He was on 2 pressors and was started on steroids at the same time. Leukocytosis worsened with steroid therapy. Lactic acid was elevated on admission. A CXR had a possible retrocardiac opacity concerning for pneumonia but he did not have any respiratory symptoms. He injured his right shoulder. X ray of the right shoulder demonstrated a fracture in the humeral head and neck. He has improved clinically, he is afebrile, HD stable off pressors now. He is on ceftriaxone, currently on day 4 of antibiot ics. ID consulted for recommendations. PMH: Dementia PSH: vertebral fusion Allergies: No Known Allergies Allergy (Verified 12/23/19 02:24) Medications: Aripiprazole 2 mg PO DAILY 01/05/20 Doxazosin Mesylate [Cardura 2 mg Tablet] 2 mg PO DAILY 01/05/20 Finasteride [Proscar 5 mg Tablet] 5 mg PO DAILY 01/05/20 Hydrocodone/Acetaminophen [[place] 5-325 mg Tablet] 1 tab PO Q6HP PRN 01/05/20 Methocarbamol [Robaxin 500 mg Tablet] 500 mg PO TIDP PRN 01/05/20 Oxycodone HCl 10 mg PO Q4HP PRN 01/05/20 Polyethylene Glycol 3350 [Miralax Powder 17 gm/Packet] 1 packet PO DAILYP PRN 01/05/20 Sertraline HCl 100 mg PO DAILY 01/05/20 Tramadol HCl [Ultram 50 mg Tablet] 50 mg PO Q6HP PRN 01/05/20 Vital Signs: Temp Pulse Resp BP Pulse Ox 97.5 F 54 L 14 126/72 H 99 01/09/20 07:55 01/09/20 14:00 01/09/20 07:55 01/09/20 07:55 01/09/20 07:55 Intake & Output 01/08/20 01/09/20 01/10/20 06:59 06:59 06:59 Intake Total 057 241 9916 Output Total 2125 700 Balance -0223 962 4548 Weight 105.9 kg 101.7 kg Weight/Height Weight 101.7 kg Height 6 ft 3 in Laboratories: 01/09/20 06:32 01/09/20 06:32 MCV 87 fl (80-97) 01/09/20 06:32 MCH 29.3 pg (27.0-33.4) 01/09/20 06:32 MCHC 33.8 g/dL (32.0-36.0) 01/09/20 06:32 RDW 14.0 % (11.5-14.0) 01/09/20 06:32 Seg Neutrophils % Not Reportable 01/08/20 04:00 VBG pH 7.27 (7.30-7.42) L 01/04/20 23:35 VBG pCO2 62.2 mmHg (35-63) 01/04/20 23:35 VBG HCO3 28.0 mmol/L (20-32) 01/04/20 23:35 VBG Base Excess -0.4 mmol/L 01/04/20 23:35 Chloride 106 mmol/L (98-107) 01/09/20 06:32 Carbon Dioxide 27 mmol/L (22-30) 01/09/20 06:32 Anion Gap 5 (5-19) 01/09/20 06:32 Est GFR ( Amer) > 60 (>60) 01/09/20 06:32 Glucose 117 mg/dL (75-110) H 01/09/20 06:32 Lactic Acid 2.3 mmol/L (0.7-2.1) H 01/05/20 04:43 Calcium 8.1 mg/dL (8.4-10.2) L 01/09/20 06:32 Ionized Calcium [place] 1.05 mmol/L (1.14-1.30) L 01/05/20 04:43 Phosphorus 3.0 mg/dL (2.5-4.5) 01/07/20 06:15 Magnesium 1.8 mg/dL (1.6-2.3) 01/05/20 04:43 Total Bilirubin 0.9 mg/dL (0.2-1.3) 01/04/20 23:35 AST 32 U/L (17-59) 01/04/20 23:35 Alkaline Phosphatase 100 U/L (38-126) 01/04/20 23:35 Ammonia < 8.7 umol/L (9-33) L 01/05/20 04:43 Total Protein 6.9 g/dL (6.3-8.2) 01/04/20 23:35 Albumin 4.0 g/dL (3.5-5.0) 01/04/20 23:35 TSH 0.92 uIU/mL (0.47-4.68) 01/05/20 04:43 Free T4 1.45 ng/dL (0.78-2.19) 01/05/20 04:43 Free T3 pg/mL 2.77 pg/mL (2.77-5.27) 01/05/20 04:43 Urine Color STRAW 01/09/20 05:20 Urine Appearance CLEAR 01/09/20 05:20 Urine pH 7.0 (5.0-9.0) 01/09/20 05:20 Ur Specific [place] 1.005 01/09/20 05:20 Urine Protein NEGATIVE mg/dL (NEGATIVE) 01/09/20 05:20 Urine Glucose (UA) NEGATIVE mg/dL (NEGATIVE) 01/09/20 05:20 Urine Ketones NEGATIVE mg/dL (NEGATIVE) 01/09/20 05:20 Urine Blood SMALL (NEGATIVE) H 01/09/20 05:20 Urine RBC (Auto) 3 /HPF 01/05/20 02:54 01/04/20 01/07/20 23:35 18:15 Troponin I 0.015 NT-Pro-B Natriuret Pep 7420 H Microbiology: Blood cultures: 01/03 E. coli 01/04 E. coli 01/08 NGTD Radiology: Shoulder X-Ray 01/05/20 05:53 IMPRESSION: Similar findings when compared to the prior study revealing a comminuted mildly displaced fracture involving the right humeral head and neck. There are also degenerative changes involving the distal right clavicle and there is mild narrowing of the glenohumeral joint. Assessment and Recommendations: Patient evaluated due to E coli bacteremia of unknown source. He suffered a fall, but unclear if he fell because he was bacteremic or if he became bacteremic after the fall. This is a GI organism that can cause also UTI, but UA was negative. He did have right flank pain (probably due to the fall). No GI symptoms besides vomiting when transferred by EMS. He has a right humeral fracture, but it is unclear if this is stable and not infected now that he has been bacteremic. For GNR bacteremia we could treat as short as 7 days, however he has this shoulder fracture and would like to rule out septic arthritis. May consider US of the joint to rule out effusion. To rule out GI source may consider CT scan of abdomen and pelvis if clinically indicated. If other sources have been ruled out, will recommend 14 days of therapy due to unknown source and to prevent seeding to the back or the shoulder. Ceftriaxone 2g IV daily is adequate with EOT 02/18/2020. Unfortunately, this is resistant to all oral alternatives. Please call if questions. Lainey Alvarez MD [facility], [facility] ID [phone]
[2020-01-09] MEDS: HYDROCODONE/ACETAMINOPHEN 5-325 MG TABLET PO PRN (19:56)
[2020-01-09 21:06] LABS: C DIFFICILE GDH POSITIVE (NEGATIVE)
[2020-01-10] MEDS: OXYCODONE HCL IR 5 MG TABLET PO PRN ×2 (00:44→21:44)
[2020-01-10] MEDS: METRONIDAZOLE 250 MG TABLET PO SCH ×2 (06:10→13:14)
[2020-01-10] MEDS: INSULIN REG, HUMAN 100 UNIT/ML 3 ML VIAL (PYX) SUBCUT SCH ×5 (06:10→22:22)
[2020-01-10 06:23] LABS: HEMATOCRIT 40.3 % (37.9-51.0); HEMOGLOBIN 13.6 g/dL (13.5-17.0); MEAN CORPUSCULAR HGB CONC 33.7 g/dL (32.0-36.0); MEAN CORPUSCULAR VOLUME 86 fl (80-97); PLATELET COUNT 121 10^3/uL (150-450); RED BLOOD COUNT 4.69 10^6/uL (4.35-5.55); RED CELL DISTRIBUTION WIDTH 14.2 % (11.5-14.0); WHITE BLOOD COUNT 13.8 10^3/uL (4.0-10.5)
[2020-01-10 06:42] LABS: ANION GAP 5 (5-19); BLOOD UREA NITROGEN 29 mg/dL (7-20); CALCIUM 7.9 mg/dL (8.4-10.2); CARBON DIOXIDE 28 mmol/L (22-30); CHLORIDE 103 mmol/L (98-107); GLUCOSE 92 mg/dL (75-110); POTASSIUM 3.5 mmol/L (3.6-5.0)
[2020-01-10] MEDS ORDERED: POTASSIUM CHLORIDE 10 MEQ TABLET.ER PO ONE ×2 (07:29→11:21)
[2020-01-10] MEDS: CALCIUM CARBONATE 600 MG/VITAMIN D3 400 UNIT TABLET PO SCH ×2 (11:18→17:12)
[2020-01-10] MEDS: SERTRALINE HCL 50 MG TABLET PO SCH (11:18)
[2020-01-10] MEDS: ARIPIPRAZOLE 2 MG TABLET PO SCH (11:18)
[2020-01-10] MEDS: FINASTERIDE 5 MG TABLET PO SCH (11:19)
[2020-01-10] MEDS: MIDODRINE HCL 5 MG TABLET PO SCH ×2 (11:19→17:12)
[2020-01-10] MEDS: FAMOTIDINE INJ/PF 20 MG/2 ML SDV IV SCH (11:19)
[2020-01-10] MEDS: ENOXAPARIN SODIUM INJ 40 MG/0.4 ML DISP.SYRIN SUBCUT SCH (11:32)
[2020-01-10] MEDS: CEFTRIAXONE 2 GM/D5W RTU 2 GM/50 ML RTUPB IV SCH (11:34)
[2020-01-10] MEDS: HYDROCORTISONE SOD SUCCINATE INJ/PF 100 MG/2 ML SDV IV SCH ×2 (11:36→21:44)
[2020-01-10] MEDS: VANCOMYCIN HCL INJ 500 MG VIAL PO SCH ×2 (13:12→17:12)
--- NOTE | 2020-01-10 14:30 | Progress Note ---
Provider Note Provider Note: [facility] Telephone Advice Follow Up Chart reviewed. As a summary, patient was evaluated due to E coli bacteremia o f unknown source in the setting of a fall and right shoulder fracture. He was very ill at the time of admission requiring pressors. He has clinically improved with significant improvement in leukocytosis from >30 to 13.8 now. He has developed diarrhea and C diff test was sent yesterday. This came back positive. A recommendation for 14 days of ceftriaxone for E coli bacteremia from unknown source was given. In the setting of C diff infection, may consider this translocation from GI tract and probably able to treat shorter, a total of 7-10 days based on clinical response. Vancomycin 125 mg po every 6 hr is recommended for CDI for a total of 10 days. Please call if any questions. Lainey Alvarez MD [facility] [phone]
--- NOTE | 2020-01-10 15:46 | RADIOLOGY REPORT (SQ) ---
EXAM DESCRIPTION: MRI RT UPPER EXTREMITY WITHOUT IMAGES COMPLETED DATE/TIME: 01/10/2020 3:29 pm REASON FOR STUDY: bacteremia, recent humerus fx. COMPARISON: None. TECHNIQUE: Right shoulder images acquired and stored on PACS. Multiplanar imaging to include fat sen sitive sequences such as T1, water sensitive sequences such as FST2/STIR, cartilage sensitive sequenc es such as FSPD/gradient-echo sequences. LIMITATIONS: None. FINDINGS: BONE MARROW AND CORTEX: Edema associated with comminuted minimally displaced fracture surg ical neck, anatomic neck and humeral head. JOINT OR BURSAL EFFUSION: Small amount of fluid in the subacromial bursa. GLENO-HUMERAL ARTICULATION: Intact. ACROMION AND AC JOINT: Type 2 acromion. Mild AC joint arthropathy. ROTATOR CUFF AND INTERVAL: Partial width full-thickness tear of the supraspinatus. No rotator interval tear. No rotator interval thickening to suggest adhesive capsulitis. LABRUM AND BICEPS LABRAL COMPLEX: Intact. No labral tear. Intra-articular long-head biceps tendon n ormal. Distal biceps in normal location in bicipital groove. REMAINDER OF LABRUM AND IGHL : No gross tear or paralabral cyst formation. Labral evaluation is less than optimal without joint distention. No thickening of IGHL to suggest adhesive capsulitis. PERIARTICULAR AND ADJACENT SOFT TISSUES: No masses or abnormal nodes. OTHER: No other significant finding. IMPRESSION: 1. Known comminuted fracture of the proximal humerus. 2. Partial width full-thickness tear of the supraspinatus. TECHNICAL DOCUMENTATION: JOB ID: [id number] 2010 [employer]- All Rights Reserved Reading location - IP/workstation name: [email or web address]
--- NOTE | 2020-01-10 16:40 | PDOC PROGRESS REPORT ---
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 coli bacteremia without source. Patient did require vasopressors x48 hours. Patient was seen on morning rounds, comfortably, on room air. He was sleeping but woke easily when I said his name. He is oriented x4. He tells me that he has discussed with his sister who lives next door. She has offered to assist him with any medication needs at discharge; currently he is hopeful that he will be able to go home to complete his antibiotic therapy. He does complain of continued right shoulder pain, however, states that his medications are controlling the discomfort adequately. He denies fever, chills, chest pain, palpitations, dyspnea, cough, abdominal pain, nausea vomiting diarrhea. He reports good appetite. He has no other questions or concerns at this time. No concerns per nursing Reason For Visit: HYPOTENSION REQUIRING VASOPRESSORS Physical Exam Vital Signs: Temp Pulse Resp BP Pulse Ox 97.7 F 56 L 18 138/73 H 100 01/10/20 13:45 01/10/20 13:45 01/10/20 13:45 01/10/20 13:45 01/10/20 13:45 Intake & Output 01/09/20 01/10/20 01/11/20 06:59 06:59 06:59 Intake Total 950 2290 410 Output Total 700 1675 50 Balance 250 615 360 Weight 101.7 kg 102.9 kg General appearance: PRESENT: no acute distress, cooperative, well-developed, well-nourished Head exam: PRESENT: atraumatic, normocephalic Eye exam: PRESENT: conjunctiva pink, EOMI, PERRLA. ABSENT: scleral icterus Mouth exam: PRESENT: moist, tongue midline Respiratory exam: PRESENT: clear to auscultation rj, symmetrical, unlabored. ABSENT: rales, rhonchi, wheezes Cardiovascular exam: PRESENT: RRR, +S1, +S2. ABSENT: diastolic murmur, rubs, systolic murmur Vascular exam: PRESENT: normal capillary refill GI/Abdominal exam: PRESENT: normal bowel sounds, soft. ABSENT: distended, guarding, mass, organolmegaly, rebound, tenderness Rectal exam: PRESENT: deferred Extremities exam: PRESENT: full ROM. ABSENT: calf tenderness, clubbing, pedal edema Musculoskeletal exam: PRESENT: ambulatory Neurological exam: PRESENT: alert, awake, oriented to person, oriented to place, oriented to time, oriented to situation, CN II-XII grossly intact, other - pleasant confusion/impulsive in the evenings. ABSENT: motor sensory deficit Psychiatric exam: PRESENT: appropriate affect, normal mood. ABSENT: homicidal ideation, suicidal ideation Skin exam: PRESENT: dry, intact, warm. ABSENT: cyanosis, rash Results Laboratory Results: 01/10/20 05:49 01/10/20 05:49 01/09/20 01/10/20 01/10/20 16:30 05:49 05:49 WBC 13.8 H RBC 4.69 Hgb 13.6 Hct 40.3 MCV 86 MCH 29.0 MCHC 33.7 RDW 14.2 H Plt Count 121 L Sodium 135.9 L Potassium 3.5 L Chloride 103 Carbon Dioxide 28 Anion Gap 5 BUN 29 H Creatinine 0.82 Est GFR ( Amer) > 60 Glucose 92 Calcium 7.9 L Stool for White Cells NO WBCs SEEN 01/04/20 01/07/20 23:35 18:15 Troponin I 0.015 NT-Pro-B Natriuret Pep 7420 H Impressions: Shoulder X-Ray 01/05/20 05:53 IMPRESSION: Similar findings when compared to the prior study revealing a comminuted mildly displaced fracture involving the right humeral head and neck. There are also degenerative changes involving the distal right clavicle and there is mild narrowing of the glenohumeral joint. Upper Extremity MRI 01/10/20 00:00 IMPRESSION: 1. Known comminuted fracture of the proximal humerus. 2. Partial width full-thickness tear of the supraspinatus. Assessment and Plan - Diagnosis (1) C. difficile diarrhea Is this a current diagnosis for this admission?: Yes Plan: C. diff positive. Continue Vancomycin 125 mg po q6 hrs x10 days. Day 110 (2) E coli bacteremia Is this a current diagnosis for this admission?: Yes Plan: Blood cultures (4 4 bottles) positive for E. coli bacteremia with numerous resistances. Repeat cultures (01/09/2020) pending. Urinalysis negative x2. Now w/ (+) c. diff. Possibly translocation from gut. MRI RUE is negative for septic arthritis, joint infection, early osteo. Continue IV Rocephin x 7-10 days. EOT 01/14 Infectious disease consulted; appreciate Dr. Alvarez's recommendations. (3) Hypotension Qualifiers: Hypotension type: orthostatic hypotension Qualified Code(s): I95.1 - Orthostatic hypotension Is this a current diagnosis for this admission?: Yes Plan: Resolved; secondary to sepsis related to E. coli bacteremia/ sepsis present on admission. Currently, normotensive. Off vasopressors. Continue weaning stress dose steroids. Continue to monitor blood pressure. (4) Hypoadrenalism Is this a current diagnosis for this admission?: Yes Plan: AM cortisol 29 Continue weaning Solu-Cortef (5) Leukocytosis Qualifiers: Leukocytosis type: leukemoid reaction Qualified Code(s): D72.823 - Leukemoid reaction Is this a current diagnosis for this admission?: Yes Plan: WBC count is downtrending. T-max 101.7 at admission; has been afebrile since. Cultures and antibiotics as above. (6) Right humeral fracture Qualifiers: Encounter type: sequela Humerus Location: proximal Fracture type: closed Fracture morphology: unspecified fracture morphology Qualified Code(s): S42.201S - Unspecified fracture of upper end of right humerus, sequela Is this a current diagnosis for this admission?: Yes Plan: Recent but not new. Treat with sling for now MRI as above. Analgesics as needed. Nonpharmacological interventions (7) BPH (benign prostatic hyperplasia) Qualifiers: Lower urinary tract symptom presence: unspecified whether lower urinary tract symptoms present Qualified Code(s): N40.0 - Benign prostatic hyperplasia without lower urinary tract symptoms Is this a current diagnosis for this admission?: Yes Plan: Continue home dose Cardura and Proscar (8) Delirium Is this a current diagnosis for this admission?: Yes Plan: Improved; continues to have periods of pleasant confusion. Possibly related to ICU admission and steroid therapy for adrenal insufficiency. Likely a component of underlying early dementia w/ . Continue home dose Abilify and Zoloft. Supportive care. (9) Hyponatremia Is this a current diagnosis for this admission?: Yes Plan: Resolved. (10) Elevated brain natriuretic peptide (BNP) level Is this a current diagnosis for this admission?: Yes Plan: proBNP 7k Currently euvolemic; not in heart failure at this time. (11) Sepsis Qualifiers: Sepsis type: Escherichia coli Sepsis acute organ dysfunction status: unspecified Qualified Code(s): A41.51 - Sepsis due to Escherichia coli [E. coli] Is this a current diagnosis for this admission?: Yes Plan: Resolved. IV fluids and pressor support while in ICU. Cultures and antibiotics as above. - Time Time Spent with patient: 25-34 minutes Medications reviewed and adjusted accordingly: Yes Anticipated discharge: Home with Homehealth
[2020-01-10] MEDS: FAMOTIDINE 20 MG TABLET PO SCH (21:44)
[2020-01-11] MEDS: VANCOMYCIN HCL INJ 500 MG VIAL PO SCH ×4 (00:21→17:06)
[2020-01-11 05:14] LABS: HEMATOCRIT 40.4 % (37.9-51.0); HEMOGLOBIN 13.7 g/dL (13.5-17.0); MEAN CORPUSCULAR HEMOGLOBIN 29.5 pg (27.0-33.4); MEAN CORPUSCULAR HGB CONC 33.9 g/dL (32.0-36.0); MEAN CORPUSCULAR VOLUME 87 fl (80-97); PLATELET COUNT 144 10^3/uL (150-450); RED BLOOD COUNT 4.64 10^6/uL (4.35-5.55); RED CELL DISTRIBUTION WIDTH 14.3 % (11.5-14.0); WHITE BLOOD COUNT 10.6 10^3/uL (4.0-10.5)
[2020-01-11 05:39] LABS: ANION GAP 5 (5-19); BLOOD UREA NITROGEN 23 mg/dL (7-20); CALCIUM 8.2 mg/dL (8.4-10.2); CARBON DIOXIDE 27 mmol/L (22-30); CHLORIDE 104 mmol/L (98-107); GLUCOSE 124 mg/dL (75-110)
[2020-01-11] MEDS: INSULIN REG, HUMAN 100 UNIT/ML 3 ML VIAL (PYX) SUBCUT SCH ×4 (09:31→22:17)
[2020-01-11] MEDS: MIDODRINE HCL 5 MG TABLET PO SCH ×2 (09:38→17:06)
[2020-01-11] MEDS: SERTRALINE HCL 50 MG TABLET PO SCH (09:38)
[2020-01-11] MEDS: CALCIUM CARBONATE 600 MG/VITAMIN D3 400 UNIT TABLET PO SCH ×2 (09:38→17:05)
[2020-01-11] MEDS: FAMOTIDINE 20 MG TABLET PO SCH ×2 (09:38→22:08)
[2020-01-11] MEDS: ARIPIPRAZOLE 2 MG TABLET PO SCH (09:39)
[2020-01-11] MEDS: CEFTRIAXONE 2 GM/D5W RTU 2 GM/50 ML RTUPB IV SCH (09:39)
[2020-01-11] MEDS: FINASTERIDE 5 MG TABLET PO SCH (09:39)
[2020-01-11] MEDS: ENOXAPARIN SODIUM INJ 40 MG/0.4 ML DISP.SYRIN SUBCUT SCH (09:40)
[2020-01-11] MEDS: OXYCODONE HCL IR 5 MG TABLET PO PRN ×2 (09:41→17:05)
[2020-01-11] MEDS ORDERED: HYDROCORTISONE SOD SUCCINATE INJ/PF 100 MG/2 ML SDV IV SCH (10:00)
--- NOTE | 2020-01-11 14:47 | PDOC PROGRESS REPORT ---
Subjective Progress Note for:: 01/11/20 Subjective:: The patient is an 84-year-old male with a past medical history of heart murmur, TIA, depression, early dementia, and BPH who was admitted to the [facility] service on 01/05/2020 for sepsis secondary to E. coli bacteremia without source. Patient did require vasopressors x48 hours. Patient was seen on morning rounds, comfortably, on room air. He was sleeping but woke easily when I said his name. He is oriented x4. He states he is feeling well and asks about discharge; reminded that he needs a few more days of antibiotics and will likely discharge on Tuesday. He does complain of continued right shoulder pain, however, states that his medications are controlling the discomfort adequately. He denies fever, chills, chest pain, palpitations, dyspnea, cough, abdominal pain, nausea vomiting. Denies diarrhea; 3 bm's documented overnight. He has no other questions or concerns at this time. 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 ABSENT: scleral icterus Mouth exam: PRESENT: moist, tongue midline Teeth exam: PRESENT: poor dentation Respiratory exam: PRESENT: clear to auscultation rj, symmetrical, unlabored. ABSENT: rales, rhonchi, wheezes Cardiovascular exam: PRESENT: RRR. ABSENT: diastolic murmur, rubs, systolic murmur Pulses: PRESENT: normal dorsalis pedis pul Vascular exam: PRESENT: normal capillary refill GI/Abdominal exam: PRESENT: normal bowel sounds, soft. ABSENT: distended, guarding, mass, organolmegaly, rebound, tenderness Rectal exam: PRESENT: deferred Extremities exam: PRESENT: full ROM. ABSENT: calf tenderness, clubbing, pedal edema Musculoskeletal exam: PRESENT: ambulatory Neurological exam: PRESENT: alert, awake, oriented to person, oriented to place, oriented to time, oriented to situation, CN II-XII grossly intact, other - pleasant confusion/impulsive in the evenings. ABSENT: motor sensory deficit Psychiatric exam: PRESENT: appropriate affect, normal mood. ABSENT: homicidal ideation, suicidal ideation Skin exam: PRESENT: dry, intact, warm. ABSENT: cyanosis, rash Results Laboratory Results: 01/11/20 04:40 01/11/20 04:40 01/11/20 01/11/20 04:40 04:40 WBC 10.6 H RBC 4.64 Hgb 13.7 Hct 40.4 MCV 87 MCH 29.5 MCHC 33.9 RDW 14.3 H Plt Count 144 L Sodium 136.1 L Potassium 4.0 Chloride 104 Carbon Dioxide 27 Anion Gap 5 BUN 23 H Creatinine 0.79 Est GFR ( Amer) > 60 Glucose 124 H Calcium 8.2 L 01/09/20 16:30 Stool - Stool - Final 01/09/20 16:30 Stool - Stool Stool Culture - Final NO SALMONELLA, SHIGELLA, CAMPYLOBACTER, OR E.COLI 0157 RECOVERED. NEGATIVE FOR SHIGA TOXINS 1&2. 01/04/20 01/07/20 23:35 18:15 Troponin I 0.015 NT-Pro-B Natriuret Pep 7420 H Impressions: Shoulder X-Ray 01/05/20 05:53 IMPRESSION: Similar findings when compared to the prior study revealing a comminuted mildly displaced fracture involving the right humeral head and neck. There are also degenerative changes involving the distal right clavicle and there is mild narrowing of the glenohumeral joint. Upper Extremity MRI 01/10/20 00:00 IMPRESSION: 1. Known comminuted fracture of the proximal humerus. 2. Partial width full-thickness tear of the supraspinatus. Assessment and Plan - Diagnosis (1) C. difficile diarrhea Is this a current diagnosis for this admission?: Yes Plan: Improving; decreased bowel movements. C. diff positive. Continue Vancomycin 125 mg p.o. q6 hrs x10 days. Day 08/17 (2) E coli bacteremia Is this a current diagnosis for this admission?: Yes Plan: Blood cultures (4 of 4 bottles) positive for E. coli bacteremia with numerous r esistances. Repeat cultures (01/09/2020) negative at 48 hrs Urinalysis negative x2. Now w/ (+) c. diff. Possibly translocation from gut. MRI RUE is negative for septic arthritis, joint infection, early osteo. Continue IV Rocephin x 7-10 days. EOT 01/15/20 Infectious disease consulted; appreciate Dr. Alvarez's recommendations. (3) Hypotension Qualifiers: Hypotension type: orthostatic hypotension Qualified Code(s): I95.1 - Ort hostatic hypotension Is this a current diagnosis for this admission?: Yes Plan: Resolved; secondary to sepsis related to E. coli bacteremia/ sepsis present on admission. Currently, normotensive. Off vasopressors. Continue weaning stress dose steroids. Continue to monitor blood pressure. (4) Hypoadrenalism Is this a current diagnosis for this admission?: Yes Plan: AM cortisol 29 Continue weaning Solu-Cortef; last dose today (5) Leukocytosis Qualifiers: Leukocytosis type: leukemoid reaction Qualified Code(s): D72.823 - Leukemoid reaction Is this a current diagnosis for this admission?: Yes Plan: WBC count is downtrending. T-max 101.7 at admission; has been afebrile since. Cultures and antibiotics as above. (6) Right humeral fracture Qualifiers: Encounter type: sequela Humerus Location: proximal Fracture type: closed Fracture morphology: unspecified fracture morphology Qualified Code(s): S42.201S - Unspecified fracture of upper end of right humerus, sequela Is this a current diagnosis for this admission?: Yes Plan: Recent but not new. Treat with sling for now MRI as above. Analgesics as needed. Nonpharmacological interventions (7) BPH (benign prostatic hyperplasia) Qualifiers: Lower urinary tract symptom presence: unspecified whether lower urinary tract symptoms present Qualified Code(s): N40.0 - Benign prostatic hyperplasia without lower urinary tract symptoms Is this a current diagnosis for this admission?: Yes Plan: Continue home dose Cardura and Proscar (8) Delirium Is this a current diagnosis for this admission?: Yes Plan: Improved; continues to have periods of pleasant confusion. Possibly related to ICU admission and steroid therapy for adrenal insufficiency. Likely a component of underlying early dementia w/ sundowning. Continue home dose Abilify and Zoloft. Supportive care. (9) Hyponatremia Is this a current diagnosis for this admission?: Yes Plan: Resolved. (10) Elevated brain natriuretic peptide (BNP) level Is this a current diagnosis for this admission?: Yes Plan: proBNP 7k Currently euvolemic; not in heart failure at this time. (11) Sepsis Qualifiers: Sepsis type: Escherichia coli Sepsis acute organ dysfunction status: unspecified Qualified Code(s): A41.51 - Sepsis due to Escherichia coli [E. coli] Is this a current diagnosis for this admission?: Yes Plan: Resolved. IV fluids and pressor support while in ICU. Cultures and antibiotics as above. - Time Time Spent with patient: 15-24 minutes Medications reviewed and adjusted accordingly: Yes Anticipated discharge: Home with Homehealth
[2020-01-12] MEDS: VANCOMYCIN HCL INJ 500 MG VIAL PO SCH ×4 (00:05→17:30)
[2020-01-12] MEDS: HYDROCODONE/ACETAMINOPHEN 5-325 MG TABLET PO PRN (05:55)
[2020-01-12] MEDS: INSULIN REG, HUMAN 100 UNIT/ML 3 ML VIAL (PYX) SUBCUT SCH ×4 (07:28→21:49)
[2020-01-12] MEDS: ENOXAPARIN SODIUM INJ 40 MG/0.4 ML DISP.SYRIN SUBCUT SCH (10:17)
[2020-01-12] MEDS: FINASTERIDE 5 MG TABLET PO SCH (10:29)
[2020-01-12] MEDS: MIDODRINE HCL 5 MG TABLET PO SCH ×2 (10:29→17:29)
[2020-01-12] MEDS: CALCIUM CARBONATE 600 MG/VITAMIN D3 400 UNIT TABLET PO SCH ×2 (10:29→17:30)
[2020-01-12] MEDS: FAMOTIDINE 20 MG TABLET PO SCH ×2 (10:29→21:52)
[2020-01-12] MEDS: CEFTRIAXONE 2 GM/D5W RTU 2 GM/50 ML RTUPB IV SCH (10:29)
[2020-01-12] MEDS: SERTRALINE HCL 50 MG TABLET PO SCH (10:29)
[2020-01-12] MEDS: ARIPIPRAZOLE 2 MG TABLET PO SCH (12:56)
--- NOTE | 2020-01-12 13:57 | PDOC PROGRESS REPORT ---
Subjective Progress Note for:: 01/12/20 Subjective:: The patient is an 84-year-old male with a past medical history of heart murmur, TIA, depression, early dementia, and BPH who was admitted to the [facility] on 01/05/2020 for sepsis secondary to E. coli bacteremia without source. Patient did require vasopressors x48 hours. Patient was seen on morning rounds, comfortably, on room air. He is sitting up to the recliner on room air. States he isn't feeling well; describes fatigue and generalized weakness. He denies fever, chills, chest pain, palpitations, dyspnea, cough, abdominal pain, nausea vomiting. Denies diarrhea; 1 large/loose bm overnight. He has no other questions or concerns at this time. No concerns per nursing Reason For Visit: HYPOTENSION REQUIRING VASOPRESSORS Physical Exam Vital Signs: Temp Pulse Resp BP Pulse Ox 97.3 F 52 L 14 142/81 H 100 01/12/20 12:00 01/12/20 12:00 01/12/20 12:00 01/12/20 12:00 01/12/20 12:00 Intake & Output 01/11/20 01/12/20 01/13/20 06:59 06:59 06:59 Intake Total 840 510 410 Output Total 1400 Balance -560 510 410 Weight 101.9 kg 101.2 kg 101.2 kg General appearance: PRESENT: no acute distress, hard of hearing, well-developed, well-nourished Head exam: PRESENT: atraumatic, normocephalic Eye exam: PRESENT: conjunctiva pink, EOMI, PERRLA. ABSENT: scleral icterus Mouth exam: PRESENT: moist, tongue midline Respiratory exam: PRESENT: clear to auscultation rj, symmetrical, unlabored. ABSENT: rales, rhonchi, wheezes Cardiovascular exam: PRESENT: RRR. ABSENT: diastolic murmur, rubs, systolic murmur Vascular exam: PRESENT: normal capillary refill GI/Abdominal exam: PRESENT: normal bowel sounds, soft Extremities exam: PRESENT: tenderness - Rt arm to sling. ABSENT: calf tenderness, clubbing, full ROM, pedal edema Neurological exam: PRESENT: alert, awake, oriented to person, oriented to place, oriented to time, oriented to situation, CN II-XII grossly intact, other - pleasant confusion/impulsive in the evenings. ABSENT: motor sensory deficit Psychiatric exam: PRESENT: appropriate affect, normal mood. ABSENT: homicidal ideation, suicidal ideation Skin exam: PRESENT: dry, intact, warm. ABSENT: cyanosis, rash Results Laboratory Results: 01/11/20 04:40 01/11/20 04:40 01/09/20 16:30 Stool - Stool - Final 01/09/20 16:30 Stool - Stool Stool Culture - Final NO SALMONELLA, SHIGELLA, CAMPYLOBACTER, OR E.COLI 0157 RECOVERED. NEGATIVE FOR SHIGA TOXINS 1&2. 01/04/20 01/07/20 23:35 18:15 Troponin I 0.015 NT-Pro-B Natriuret Pep 7420 H Impressions: Shoulder X-Ray 01/05/20 05:53 IMPRESSION: Similar findings when compared to the prior study revealing a comminuted mildly displaced fracture involving the right humeral head and neck. There are also degenerative changes involving the distal right clavicle and there is mild narrowing of the glenohumeral joint. Upper Extremity MRI 01/10/20 00:00 IMPRESSION: 1. Known comminuted fracture of the proximal humerus. 2. Partial width full-thickness tear of the supraspinatus. Assessment and Plan - Diagnosis (1) C. difficile diarrhea Is this a current diagnosis for this admission?: Yes Plan: Improving; decreased bowel movements. C. diff positive. Continue Vancomycin 125 mg p.o. q6 hrs x10 days. Day 10/15 (2) E coli bacteremia Is this a current diagnosis for this admission?: Yes Plan: Blood cultures (4 of 4 bottles) positive for E. coli bacteremia with numerous resistances. Repeat cultures (01/09/2020) negative at 48 hrs Urinalysis negative x2. Now w/ (+) c. diff. Possibly translocation from gut. MRI RUE is negative for septic arthritis, joint infection, early osteo. Continue IV Rocephin x 7-10 days. EOT 01/15/20 Infectious disease consulted; appreciate Dr. Alvarez's recommendations. (3) Leukocytosis Qualifiers: Leukocytosis type: leukemoid reaction Qualified Code(s): D72.823 - Leukemoid reaction Is this a current diagnosis for this admission?: Yes Plan: WBC count is downtrending. T-max 101.7 at admission; has been afebrile since. Cultures and antibiotics as above. (4) Right humeral fracture Qualifiers: Encounter type: sequela Humerus Location: proximal Fracture type: closed Fracture morphology: unspecified fracture morphology Qualified Code(s): S42.201S - Unspecified fracture of upper end of right humerus, sequela Is this a current diagnosis for this admission?: Yes Plan: Recent but not new. Treat with sling for now MRI as above. Analgesics as needed. Nonpharmacological interventions (5) BPH (benign prostatic hyperplasia) Qualifiers: Lower urinary tract symptom presence: unspecified whether lower urinary tract symptoms present Qualified Code(s): N40.0 - Benign prostatic hyperplasia without lower urinary tract symptoms Is this a current diagnosis for this admission?: Yes Plan: Continue home dose Cardura and Proscar (6) Delirium Is this a current diagnosis for this admission?: Yes Plan: Improved; continues to have periods of pleasant confusion. Possibly related to ICU admission and steroid therapy for adrenal insufficiency. Likely a component of underlying early dementia / . Continue home dose Abilify and Zoloft. Supportive care. (7) Hyponatremia Is this a current diagnosis for this admission?: Yes Plan: Resolved. (8) Elevated brain natriuretic peptide (BNP) level Is this a current diagnosis for this admission?: Yes Plan: proBNP 7k Currently euvolemic; not in heart failure at this time. (9) Sepsis Qualifiers: Sepsis type: Escherichia coli Sepsis acute organ dysfunction status: unspecified Qualified Code(s): A41.51 - Sepsis due to Escherichia coli [E. coli] Is this a current diagnosis for this admission?: Yes Plan: Resolved. IV fluids and pressor support while in ICU. Cultures and antibiotics as above. (10) Hypotension Qualifiers: Hypotension type: orthostatic hypotension Qualified Code(s): I95.1 - Orthostatic hypotension Is this a current diagnosis for this admission?: Yes Plan: Resolved; secondary to sepsis related to E. coli bacteremia/ sepsis present on admission. Currently, normotensive. Off vasopressors. Have weaned off steroids. Continue to monitor blood pressure. (11) Hypoadrenalism Is this a current diagnosis for this admission?: Yes Plan: AM cortisol 29 Have weaned off Solu-Cortef; last dose yesterday
[2020-01-13] MEDS: VANCOMYCIN HCL INJ 500 MG VIAL PO SCH ×5 (05:21→23:57)
[2020-01-13 06:29] LABS: HEMATOCRIT 44.2 % (37.9-51.0); HEMOGLOBIN 14.6 g/dL (13.5-17.0); MEAN CORPUSCULAR HEMOGLOBIN 28.8 pg (27.0-33.4); MEAN CORPUSCULAR VOLUME 87 fl (80-97); PLATELET COUNT 186 10^3/uL (150-450); RED BLOOD COUNT 5.06 10^6/uL (4.35-5.55); RED CELL DISTRIBUTION WIDTH 14.1 % (11.5-14.0); WHITE BLOOD COUNT 11.5 10^3/uL (4.0-10.5)
[2020-01-13 07:03] LABS: ANION GAP 6 (5-19); BLOOD UREA NITROGEN 18 mg/dL (7-20); CALCIUM 8.1 mg/dL (8.4-10.2); CARBON DIOXIDE 29 mmol/L (22-30); CHLORIDE 99 mmol/L (98-107); GLUCOSE 86 mg/dL (75-110); POTASSIUM 3.8 mmol/L (3.6-5.0)
[2020-01-13] MEDS: INSULIN REG, HUMAN 100 UNIT/ML 3 ML VIAL (PYX) SUBCUT SCH ×4 (07:23→22:26)
[2020-01-13] MEDS: CALCIUM CARBONATE 600 MG/VITAMIN D3 400 UNIT TABLET PO SCH ×2 (09:30→17:18)
[2020-01-13] MEDS: CEFTRIAXONE 2 GM/D5W RTU 2 GM/50 ML RTUPB IV SCH (09:30)
[2020-01-13] MEDS: MIDODRINE HCL 5 MG TABLET PO SCH ×2 (09:30→17:17)
[2020-01-13] MEDS: ARIPIPRAZOLE 2 MG TABLET PO SCH (09:30)
[2020-01-13] MEDS: FAMOTIDINE 20 MG TABLET PO SCH ×2 (09:30→22:30)
[2020-01-13] MEDS: SERTRALINE HCL 50 MG TABLET PO SCH (09:30)
[2020-01-13] MEDS: FINASTERIDE 5 MG TABLET PO SCH (09:30)
[2020-01-13] MEDS: ENOXAPARIN SODIUM INJ 40 MG/0.4 ML DISP.SYRIN SUBCUT SCH (09:30)
--- NOTE | 2020-01-13 14:25 | PDOC PROGRESS REPORT ---
Subjective Progress Note for:: 01/13/20 Subjective:: The patient is an 84-year-old male with a past medical history of heart murmur, TIA, depression, early dementia, and BPH who was admitted to the [facility] on 01/05/2020 for sepsis secondary to E. coli bacteremia without source. Patient did require vasopressors x48 hours. Patient was seen on morning rounds, comfortably, on room air. He is sitting up to the recliner on room air. Again reports fatigue, but otherwise denies all complaints. A&Ox4 today. He denies fever, chills, chest pain, palpitations, dyspnea, cough, abdominal pain, nausea, vomiting, and diarrhea. He has no other questions or concerns at this time. No concerns per nursing Reason For Visit: HYPOTENSION REQUIRING VASOPRESSORS Physical Exam Vital Signs: Temp Pulse Resp BP Pulse Ox 98.2 F 62 17 125/67 100 01/13/20 07:36 01/13/20 07:36 01/13/20 07:36 01/13/20 07:36 01/13/20 07:36 Intake & Output 01/12/20 01/13/20 01/14/20 06:59 06:59 06:59 Intake Total 510 996 170 Balance 510 996 170 Weight 101.2 kg 101.2 kg General appearance: PRESENT: no acute distress, cooperative, well-developed, well-nourished - overweight Head exam: PRESENT: atraumatic, normocephalic Eye exam: PRESENT: conjunctiva pink, EOMI, PERRLA. ABSENT: scleral icterus Mouth exam: PRESENT: moist, tongue midline Respiratory exam: PRESENT: clear to auscultation rj, symmetrical, unlabored. ABSENT: rales, rhonchi, wheezes Cardiovascular exam: PRESENT: RRR, +S1, +S2. ABSENT: diastolic murmur, rubs, systolic murmur Pulses: PRESENT: normal dorsalis pedis pul Vascular exam: PRESENT: normal capillary refill Extremities exam: PRESENT: tenderness - RUE to sling. ABSENT: calf tenderness, clubbing, full ROM, pedal edema Neurological exam: PRESENT: alert, awake, oriented to person, oriented to place, oriented to time, oriented to situation, CN II-XII grossly intact. ABSENT: motor sensory deficit Psychiatric exam: PRESENT: appropriate affect, normal mood. ABSENT: homicidal ideation, suicidal ideation Skin exam: PRESENT: dry, intact, warm. ABSENT: cyanosis, rash Results Laboratory Results: 01/13/20 05:14 01/13/20 05:14 01/13/20 01/13/20 05:14 05:14 WBC 11.5 H RBC 5.06 Hgb 14.6 Hct 44.2 MCV 87 MCH 28.8 MCHC 33.0 RDW 14.1 H Plt Count 186 Sodium 133.9 L Potassium 3.8 Chloride 99 Carbon Dioxide 29 Anion Gap 6 BUN 18 Creatinine 0.75 Est GFR ( Amer) > 60 Glucose 86 Calcium 8.1 L 01/04/20 01/07/20 23:35 18:15 Troponin I 0.015 NT-Pro-B Natriuret Pep 7420 H Impressions: Shoulder X-Ray 01/05/20 05:53 IMPRESSION: Similar findings when compared to the prior study revealing a comminuted mildly displaced fracture involving the right humeral head and neck. There are also degenerative changes involving the distal right clavicle and there is mild narrowing of the glenohumeral joint. Upper Extremity MRI 01/10/20 00:00 IMPRESSION: 1. Known comminuted fracture of the proximal humerus. 2. Partial width full-thickness tear of the supraspinatus. Assessment and Plan - Diagnosis (1) C. difficile diarrhea Is this a current diagnosis for this admission?: Yes Plan: Improving; decreased bowel movements. C. diff positive. Continue Vancomycin 125 mg p.o. q6 hrs x10 days. Day 11/15 (2) E coli bacteremia Is this a current diagnosis for this admission?: Yes Plan: Blood cultures (4 of 4 bottles) positive for E. coli bacteremia with numerous resistances. Repeat cultures (01/09/2020) negative at 4 days Urinalysis negative x2. Now w/ (+) c. diff. Possibly translocation from gut. MRI RUE is negative for septic arthritis, joint infection, early osteo. Continue IV Rocephin x 10 days. EOT 01/15/20 Infectious disease consulted; appreciate Dr. Alvarez's recommendations. (3) Leukocytosis Qualifiers: Leukocytosis type: leukemoid reaction Qualified Code(s): D72.823 - Leukemoid reaction Is this a current diagnosis for this admission?: Yes Plan: WBC count is downtrending. T-max 101.7 at admission; has been afebrile since. Cultures and antibiotics as above. (4) Right humeral fracture Qualifiers: Encounter type: sequela Humerus Location: proximal Fracture type: closed Fracture morphology: unspecified fracture morphology Qualified Code(s): S42.201S - Unspecified fracture of upper end of right humerus, sequela Is this a current diagnosis for this admission?: Yes Plan: Recent but not new. Treat with sling for now MRI as above. Analgesics as needed. Nonpharmacological interventions (5) BPH (benign prostatic hyperplasia) Qualifiers: Lower urinary tract symptom presence: unspecified whether lower urinary tract symptoms present Qualified Code(s): N40.0 - Benign prostatic hyperplasia without lower urinary tract symptoms Is this a current diagnosis for this admission?: Yes Plan: Continue home dose Cardura and Proscar (6) Delirium Is this a current diagnosis for this admission?: Yes Plan: Resolved; continues to have periods of pleasant confusion at night. Likely exacerbated by acute illness, ICU admission and steroid therapy for adrenal insufficiency. Likely a component of underlying early dementia w/ . Continue home dose Abilify and Zoloft. Supportive care. (7) Hyponatremia Is this a current diagnosis for this admission?: Yes Plan: Resolved. (8) Elevated brain natriuretic peptide (BNP) level Is this a current diagnosis for this admission?: Yes Plan: proBNP 7k Currently euvolemic; not in heart failure at this time. (9) Sepsis Qualifiers: Sepsis type: Escherichia coli Sepsis acute organ dysfunction status: unspecified Qualified Code(s): A41.51 - Sepsis due to Escherichia coli [E. coli] Is this a current diagnosis for this admission?: Yes Plan: Resolved. IV fluids and pressor support while in ICU. Cultures and antibiotics as above. (10) Hypotension Qualifiers: Hypotension type: orthostatic hypotension Qualified Code(s): I95.1 - Ortho static hypotension Is this a current diagnosis for this admission?: Yes Plan: Resolved; secondary to sepsis related to E. coli bacteremia/ sepsis present on admission. Currently, normotensive. Off vasopressors. Have weaned off steroids. Continue to monitor blood pressure. (11) Hypoadrenalism Is this a current diagnosis for this admission?: Yes Plan: AM cortisol 29 Have weaned off Solu-Cortef - Time Time Spent with patient: 15-24 minutes Medications reviewed and adjusted accordingly: Yes Anticipated discharge: Home with Homehealth Within: within 72 hours
[2020-01-14] MEDS: VANCOMYCIN HCL INJ 500 MG VIAL PO SCH ×3 (07:05→17:23)
[2020-01-14] MEDS: INSULIN REG, HUMAN 100 UNIT/ML 3 ML VIAL (PYX) SUBCUT SCH ×4 (07:40→22:40)
[2020-01-14] MEDS: ARIPIPRAZOLE 2 MG TABLET PO SCH (10:34)
[2020-01-14] MEDS: MIDODRINE HCL 5 MG TABLET PO SCH ×2 (10:35→17:23)
[2020-01-14] MEDS: FINASTERIDE 5 MG TABLET PO SCH (10:35)
[2020-01-14] MEDS: ENOXAPARIN SODIUM INJ 40 MG/0.4 ML DISP.SYRIN SUBCUT SCH (10:35)
[2020-01-14] MEDS: SERTRALINE HCL 50 MG TABLET PO SCH (10:35)
[2020-01-14] MEDS: FAMOTIDINE 20 MG TABLET PO SCH ×2 (10:35→22:40)
[2020-01-14] MEDS: CALCIUM CARBONATE 600 MG/VITAMIN D3 400 UNIT TABLET PO SCH ×2 (10:35→17:23)
[2020-01-14] MEDS: CEFTRIAXONE 2 GM/D5W RTU 2 GM/50 ML RTUPB IV SCH (10:36)
--- NOTE | 2020-01-14 11:20 | PDOC PROGRESS REPORT ---
Subjective Progress Note for:: 01/14/20 Subjective:: The patient is an 84-year-old male with a past medical history of heart murmur, TIA, depression, early dementia, and BPH who was admitted to the patient care associate service on 01/05/2020 for sepsis secondary to E. coli bacteremia without source. Patient did require vasopressors x48 hours. Patient was seen on morning rounds, comfortably, on room air. He is sitting up to the recliner on room air. A&Ox4 today; reports he is feeling well. Ambulates independently in his room. Looking forward to discharge home tomorrow. He denies fever, chills, chest pain, palpitations, dyspnea, cough, abdominal pain, nausea, vomiting, and diarrhea. He has no other questions or concerns at this time. No concerns per nursing Reason For Visit: HYPOTENSION REQUIRING VASOPRESSORS Physical Exam Vital Signs: Temp Pulse Resp BP Pulse Ox 97.7 F 65 16 135/76 H 100 01/14/20 07:41 01/14/20 07:41 01/14/20 07:41 01/14/20 07:41 01/14/20 07:41 Intake & Output 01/13/20 01/14/20 01/15/20 06:59 06:59 06:59 Intake Total 996 650 50 Balance 996 650 50 Weight 101.2 kg 102.1 kg General appearance: PRESENT: no acute distress, cooperative, well-developed, well-nourished - overwight Head exam: PRESENT: atraumatic, normocephalic Eye exam: PRESENT: conjunctiva pink, EOMI, PERRLA. ABSENT: scleral icterus Mouth exam: PRESENT: moist, tongue midline Respiratory exam: PRESENT: clear to auscultation rj, symmetrical, unlabored. ABSENT: rales, rhonchi, wheezes Cardiovascular exam: PRESENT: RRR. ABSENT: diastolic murmur, rubs, systolic murmur Vascular exam: PRESENT: normal capillary refill Extremities exam: PRESENT: tenderness - RUE to sling. ABSENT: calf tenderness, clubbing, pedal edema Musculoskeletal exam: PRESENT: ambulatory Neurological exam: PRESENT: alert, awake, oriented to person, oriented to place, oriented to time, oriented to situation, CN II-XII grossly intact. ABSENT: motor sensory deficit Psychiatric exam: PRESENT: appropriate affect, normal mood. ABSENT: homicidal ideation, suicidal ideation Skin exam: PRESENT: dry, intact, warm. ABSENT: cyanosis, rash Results Laboratory Results: 01/13/20 05:14 01/13/20 05:14 01/09/20 08:07 Blood Blood Culture - Final NO GROWTH IN 5 DAYS 01/09/20 06:32 Blood Blood Culture - Final NO GROWTH IN 5 DAYS 01/04/20 01/07/20 23:35 18:15 Troponin I 0.015 NT-Pro-B Natriuret Pep 7420 H Impressions: Shoulder X-Ray 01/05/20 05:53 IMPRESSION: Similar findings when compared to the prior study revealing a comminuted mildly displaced fracture involving the right humeral head and neck. There are also degenerative changes involving the distal right clavicle and there is mild narrowing of the glenohumeral joint. Upper Extremity MRI 01/10/20 00:00 IMPRESSION: 1. Known comminuted fracture of the proximal humerus. 2. Partial width full-thickness tear of the supraspinatus. Assessment and Plan - Diagnosis (1) C. difficile diarrhea Is this a current diagnosis for this admission?: Yes Plan: Improving; decreased bowel movements. C. diff positive. Continue Vancomycin 125 mg p.o. q6 hrs x10 days. Day 12/15 (2) E coli bacteremia Is this a current diagnosis for this admission?: Yes Plan: Blood cultures (4 of 4 bottles) positive for E. coli bacteremia with numerous resistances. Repeat cultures (01/09/2020) negative at 4 days Urinalysis negative x2. Now w/ (+) c. diff. Possibly translocation from gut. MRI RUE is negative for septic arthritis, joint infection, early osteo. Continue IV Rocephin x 10 days. EOT 01/15/20 Infectious disease consulted; appreciate Dr. Alvarez's recommendations. (3) Leukocytosis Qualifiers: Leukocytosis type: leukemoid reaction Qualified Code(s): D72.823 - Leukemoid reaction Is this a current diagnosis for this admission?: Yes Plan: WBC count is downtrending. T-max 101.7 at admission; has been afebrile since. Cultures and antibiotics as above. (4) Right humeral fracture Qualifiers: Encounter type: sequela Humerus Location: proximal Fracture type: closed Fracture morphology: unspecified fracture morphology Qualified Code(s): S 42.201S - Unspecified fracture of upper end of right humerus, sequela Is this a current diagnosis for this admission?: Yes Plan: Recent but not new. Treat with sling for now MRI as above. Analgesics as needed. Nonpharmacological interventions (5) BPH (benign prostatic hyperplasia) Qualifiers: Lower urinary tract symptom presence: unspecified whether lower urinary tract symptoms present Qualified Code(s): N40.0 - Benign prostatic hyperplasia without lower urinary tract symptoms Is this a current diagnosis for this admission?: Yes Plan: Continue home dose Cardura and Proscar (6) Delirium Is this a current diagnosis for this admission?: Yes Plan: Resolved; continues to have periods of pleasant confusion at night. Likely exacerbated by acute illness, ICU admission and steroid therapy for adrenal insufficiency. Likely a component of underlying early dementia / . Continue home dose Abilify and Zoloft. Supportive care. (7) Hyponatremia Is this a current diagnosis for this admission?: Yes Plan: Resolved. (8) Elevated brain natriuretic peptide (BNP) level Is this a current diagnosis for this admission?: Yes Plan: proBNP 7k Currently euvolemic; not in heart failure at this time. (9) Sepsis Qualifiers: Sepsis type: Escherichia coli Sepsis acute organ dysfunction status: unspecified Qualified Code(s): A41.51 - Sepsis due to Escherichia coli [E. coli] Is this a current diagnosis for this admission?: Yes Plan: Resolved. IV fluids and pressor support while in ICU. Cultures and antibiotics as above. (10) Hypotension Qualifiers: Hypotension type: orthostatic hypotension Qualified Code(s): I95.1 - Orthostatic hypotension Is this a current diagnosis for this admission?: Yes Plan: Resolved; secondary to sepsis related to E. coli bacteremia/ sepsis present on admission. Currently, normotensive. Off vasopressors. Have weaned off steroids. Continue to monitor blood pressure. 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
[2020-01-15] MEDS: VANCOMYCIN HCL INJ 500 MG VIAL PO SCH ×3 (00:32→14:09)
[2020-01-15] MEDS: INSULIN REG, HUMAN 100 UNIT/ML 3 ML VIAL (PYX) SUBCUT SCH ×2 (08:11→13:58)
[2020-01-15] MEDS: SERTRALINE HCL 50 MG TABLET PO SCH (10:09)
[2020-01-15] MEDS: ARIPIPRAZOLE 2 MG TABLET PO SCH (10:09)
[2020-01-15] MEDS: ENOXAPARIN SODIUM INJ 40 MG/0.4 ML DISP.SYRIN SUBCUT SCH (10:09)
[2020-01-15] MEDS: CEFTRIAXONE 2 GM/D5W RTU 2 GM/50 ML RTUPB IV SCH (10:09)
[2020-01-15] MEDS: FAMOTIDINE 20 MG TABLET PO SCH (10:09)
[2020-01-15] MEDS: FINASTERIDE 5 MG TABLET PO SCH (10:09)
[2020-01-15] MEDS: CALCIUM CARBONATE 600 MG/VITAMIN D3 400 UNIT TABLET PO SCH (10:09)
[2020-01-15] MEDS: MIDODRINE HCL 5 MG TABLET PO SCH (10:10)
[2020-01-15 13:23] VITALS: BP 130/68
--- NOTE | 2020-01-15 18:19 | PDOC DISCHARGE SUMMARY ---
Impression - Admit/DC Date/PCP Admission Date/Primary Care Provider: 01/05/20 06:51 MILY KAUR Discharge Date: 01/15/20 - Discharge Diagnosis (1) C. difficile diarrhea Is this a current diagnosis for this admission?: Yes (2) E coli bacteremia Is this a current diagnosis for this admission?: Yes (3) Leukocytosis Is this a current diagnosis for this admission?: Yes (4) Right humeral fracture Is this a current diagnosis for this admission?: Yes (5) BPH (benign prostatic hyperplasia) Is this a current diagnosis for this admission?: Yes (6) Delirium Is this a current diagnosis for this admission?: Yes (7) Hyponatremia Is this a current diagnosis for this admission?: Yes (8) Elevated brain natriuretic peptide (BNP) level Is this a current diagnosis for this admission?: Yes (9) Sepsis Is this a current diagnosis for this admission?: Yes (10) Hypotension Is this a current diagnosis for this admission?: Yes (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 A MESSAGE WAS LEFT FOR OFFICE TO CALL PATIENT WITH A HOSPITAL FOLLOW UP APPT. DATE/TIME) Prescriptions: Calcium Carbonate/Vitamin D3 [Caltrate 600-Vit D3 400 Tablet] 1 tab PO BID #60 tablet Midodrine HCl [Proamatine 5 mg Tablet] 5 mg PO BID #28 tablet Vancomycin HCl 125 mg PO Q6H #20 capsule Home Medications: Aripiprazole 2 mg PO DAILY 01/05/20 Finasteride [Proscar 5 mg Tablet] 5 mg PO DAILY 01/05/20 Methocarbamol [Robaxin 500 mg Tablet] 500 mg PO TIDP PRN 01/05/20 Polyethylene Glycol 3350 [Miralax Powder 17 gm/Packet] 1 packet PO DAILYP PRN 01/05/20 Sertraline HCl 100 mg PO DAILY 01/05/20 Acetaminophen [Tylenol Soln 325 mg/10.15 ml Udcup] 650 mg PO Q6HP PRN udc 01/15/20 Calcium Carbonate/Vitamin D3 [Caltrate 600-Vit D3 400 Tablet] 1 tab PO BID #60 tablet 01/15/20 Midodrine HCl [Proamatine 5 mg Tablet] 5 mg PO BID #28 tablet 01/15/20 Vancomycin HCl 125 mg PO Q6H #20 capsule 01/15/20 History of Present Illiness History of Present Illness: Per H&P by EVELYN BatistaC: Kamaljit Soliman is an 84 year-old male who reportedly presented to [facility] via EMS with a chief complaint of right flank pain that started prior to arrival. EMS reports that the patient appeared diaphoretic and shaky upon their arrival and that he was also seen here on 12/23/2019 for a fall, diagnosed with a right humeral head fracture for which he was prescribed pain medication and is supposed to be wearing a sling for treatment. Per documentation, patient reportedly vomited during transport for which EMS administered pain/nausea medication in addition to 400 ml LR bolus. Patient's oxygen saturation was 88% for EMS for which they placed Mr. 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 Patient denies pain at this time. Denies shortness of breath. I was informed Mr. Arias received a total of 3 L crystalloid IV solution and was placed on norepinephrine which is currently at 14 mcg/min for refractory hypotension. Patient is afebrile, no leukocytosis and is uncertain if he has taken steroids in the past. Mild lactatemia of 2.9 which has already decreased to 2.3. Chest x-ray with possible left retrocardiac opacity. Patient mental status has improved since his hospitalization and he now reports he has felt "foggy brained" for the past 3 days. Denies flank pain, no CVA tenderness on exam, all other review of systems are negative. Patient denies any significant past medical history, but admits he doesn't frequently see a PCP. Looking at his history, he may take an anti-depressant, does have BPH which he confirmed and takes meds for, and was at some point on Plavix for possible TIA. Hospital Course Hospital Course: (1) C. difficile diarrhea Improving; now having formed bowel movements. C. diff positive. Continue Vancomycin 125 mg p.o. q6 hrs x10 days. Day 10 (2) E coli bacteremia Blood cultures (4 of 4 bottles) positive for E. coli bacteremia with numerous resistances. Repeat cultures (01/09/2020) negative at 4 days Urinalysis negative x2. Now w/ (+) c. diff. Like r/t translocation from gut. MRI RUE is negative for septic arthritis, joint infection, early osteo. IV Rocephin 2gm daily x 10 days. Completed full course of therapy. Infectious disease consulted; appreciate Dr. Alvarez's recommendations. (3) Leukocytosis WBC count is downtrending. T-max 101.7 at admission; has been afebrile since. Cultures and antibiotics as above. (4) Right humeral fracture Recent but not new. Treat with sling for now MRI as above. Analgesics as needed. Nonpharmacological interventions (5) BPH (benign prostatic hyperplasia) Continue home dose Cardura and Proscar (6) Delirium Resolved; continues to have periods of pleasant confusion at night. Likely exacerbated by acute illness, ICU admission and steroid therapy for adrenal insufficiency. Likely a component of underlying early dementia w/ . Continue home dose Abilify and Zoloft. Supportive care. (7) Hyponatremia Resolved. (8) Elevated brain natriuretic peptide (BNP) level proBNP 7k Currently euvolemic; not in heart failure at this time. (9) Sepsis Resolved. IV fluids and pressor support while in ICU. Cultures and antibiotics as above. (10) Hypotension Resolved; secondary to sepsis related to E. coli bacteremia/ sepsis present on admission. Currently, normotensive. Off vasopressors. Have weaned off steroids. Slow wean from Midodrine. 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 ABSENT: scleral icterus Mouth exam: PRESENT: moist, tongue midline Respiratory exam: PRESENT: clear to auscultation rj, symmetrical, unlabored, other - room air. ABSENT: rales, rhonchi, wheezes Cardiovascular exam: PRESENT: RRR, +S1, +S2. ABSENT: diastolic murmur, rubs, systolic murmur Pulses: PRESENT: normal dorsalis pedis pul Vascular exam: PRESENT: normal capillary refill GI/Abdominal exam: PRESENT: normal bowel sounds, soft. ABSENT: distended, guarding, mass, organolmegaly, rebound, tenderness Rectal exam: PRESENT: deferred Extremities exam: PRESENT: tenderness - RUE. ABSENT: calf tenderness, clubbing, full ROM - RUE to sling, pedal edema Musculoskeletal exam: PRESENT: ambulatory Neurological exam: PRESENT: alert, awake, oriented to person, oriented to place, oriented to time, oriented to situation, CN II-XII grossly intact, other - intermittently forgetful/pleasantly confused; especially in evening/night hours. ABSENT: motor sensory deficit Psychiatric exam: PRESENT: appropriate affect, normal mood. ABSENT: homicidal ideation, suicidal ideation Skin exam: PRESENT: dry, intact, warm. ABSENT: cyanosis, rash Results Laboratory Results: WBC 11.5 10^3/uL (4.0-10.5) H 01/13/20 05:14 RBC 5.06 10^6/uL (4.35-5.55) 01/13/20 05:14 Hgb 14.6 g/dL (13.5-17.0) 01/13/20 05:14 Hct 44.2 % (37.9-51.0) 01/13/20 05:14 MCV 87 fl (80-97) 01/13/20 05:14 MCH 28.8 pg (27.0-33.4) 01/13/20 05:14 MCHC 33.0 g/dL (32.0-36.0) 01/13/20 05:14 RDW 14.1 % (11.5-14.0) H 01/13/20 05:14 Plt Count 186 10^3/uL (150-450) 01/13/20 05:14 Lymph % (Auto) Not Reportable 01/08/20 04:00 [place] % (Auto) Not Reportable 01/08/20 04:00 Eos % (Auto) Not Reportable 01/08/20 04:00 Baso % (Auto) Not Reportable 01/08/20 04:00 Absolute Neuts (auto) Not Reportable 01/08/20 04:00 Absolute Lymphs (auto) Not Reportable 01/08/20 04:00 Absolute Monos (auto) Not Reportable 01/08/20 04:00 Absolute Eos (auto) Not Reportable 01/08/20 04:00 Absolute Basos (auto) Not Reportable 01/08/20 04:00 Total Counted 100 01/08/20 04:00 Seg Neutrophils % Not Reportable 01/08/20 04:00 Seg Neuts % (Manual) 91 % (42-78) H 01/08/20 04:00 Band Neutrophils % 1 % (3-5) L 01/07/20 06:15 Lymphocytes % (Manual) 6 % (13-45) L 01/08/20 04:00 Monocytes % (Manual) 3 % (3-13) 01/08/20 04:00 Eosinophils % (Manual) 0 % (0-6) 01/08/20 04:00 Basophils % (Manual) 0 % (0-2) 01/08/20 04:00 Abs Neuts (Manual) 18.6 10^3/uL (1.7-8.2) H 01/08/20 04:00 Abs Lymphs (Manual) 1.2 10^3/uL (0.5-4.7) 01/08/20 04:00 Abs Monocytes (Manual) 0.6 10^3/uL (0.1-1.4) 01/08/20 04:00 Absolute Eos (Manual) 0.0 10^3/uL (0.0-0.6) 01/08/20 04:00 Abs Basophils (Manual) 0.0 10^3/uL (0.0-0.2) 01/08/20 04:00 Toxic Granulation 1+ 01/08/20 04:00 Toxic Vacuolation PRESENT 01/07/20 06:15 Platelet Comment DECREASED 01/08/20 04:00 Polychromasia SLIGHT 01/07/20 06:15 Poikilocytosis SLIGHT 01/07/20 06:15 Anisocytosis SLIGHT 01/08/20 04:00 Tear Drop Cells SLIGHT 01/04/20 23:35 Ovalocytes SLIGHT 01/07/20 06:15 Tess Cells SLIGHT 01/08/20 04:00 PT 14.1 SEC (11.4-15.4) 01/04/20 23:35 INR 1.09 01/04/20 23:35 VBG pH 7.27 (7.30-7.42) L 01/04/20 23:35 VBG pCO2 62.2 mmHg (35-63) 01/04/20 23:35 VBG HCO3 28.0 mmol/L (20-32) 01/04/20 23:35 VBG Base Excess -0.4 mmol/L 01/04/20 23:35 Sodium 133.9 mmol/L (137-145) L 01/13/20 05:14 Potassium 3.8 mmol/L (3.6-5.0) 01/13/20 05:14 Chloride 99 mmol/L (98-107) 01/13/20 05:14 Carbon Dioxide 29 mmol/L (22-30) 01/13/20 05:14 Anion Gap 6 (5-19) 01/13/20 05:14 BUN 18 mg/dL (7-20) 01/13/20 05:14 Creatinine 0.75 mg/dL (0.52-1.25) 01/13/20 05:14 Est GFR ( Amer) > 60 (>60) 01/13/20 05:14 Est GFR (MDRD) Non-Af > 60 (>60) 01/13/20 05:14 Glucose 86 mg/dL (75-110) 01/13/20 05:14 POC Glucose 88 mg/dL (70-110) 01/15/20 06:21 Lactic Acid 2.3 mmol/L (0.7-2.1) H 01/05/20 04:43 Calcium 8.1 mg/dL (8.4-10.2) L 01/13/20 05:14 Ionized Calcium Lis[place] 1.05 mmol/L (1.14-1.30) L 01/05/20 04:43 Phosphorus 3.0 mg/dL (2.5-4.5) 01/07/20 06:15 Magnesium 1.8 mg/dL (1.6-2.3) 01/05/20 04:43 Total Bilirubin 0.9 mg/dL (0.2-1.3) 01/04/20 23:35 Direct Bilirubin 0.2 mg/dL (0.0-0.4) 01/04/20 23:35 Neonat Total Bilirubin Not Reportable 01/04/20 23:35 Neonat Direct Bilirubin Not Reportable 01/04/20 23:35 Neonat Indirect Bili Not Reportable 01/04/20 23:35 AST 32 U/L (17-59) 01/04/20 23:35 ALT 28 U/L (<50) 01/04/20 23:35 Alkaline Phosphatase 100 U/L (38-126) 01/04/20 23:35 Ammonia < 8.7 umol/L (9-33) L 01/05/20 04:43 Troponin I 0.015 ng/mL 01/04/20 23:35 NT-Pro-B Natriuret Pep 7420 pg/mL (<450) H 01/07/20 18:15 Total Protein 6.9 g/dL (6.3-8.2) 01/04/20 23:35 Albumin 4.0 g/dL (3.5-5.0) 01/04/20 23:35 TSH 0.92 uIU/mL (0.47-4.68) 01/05/20 04:43 Free T4 1.45 ng/dL (0.78-2.19) 01/05/20 04:43 Free T3 pg/mL 2.77 pg/mL (2.77-5.27) 01/05/20 04:43 Random Cortisol 29.10 ug/dL (None Established) 01/05/20 04:43 Urine Color STRAW 01/09/20 05:20 Urine Appearance CLEAR 01/09/20 05:20 Urine pH 7.0 (5.0-9.0) 01/09/20 05:20 Ur Specific [place] 1.005 01/09/20 05:20 Urine Protein NEGATIVE mg/dL (NEGATIVE) 01/09/20 05:20 Urine Glucose (UA) NEGATIVE mg/dL (NEGATIVE) 01/09/20 05:20 Urine Ketones NEGATIVE mg/dL (NEGATIVE) 01/09/20 05:20 Urine Blood SMALL (NEGATIVE) H 01/09/20 05:20 Urine Nitrite (Reflex) NEGATIVE (NEGATIVE) 01/09/20 05:20 Urine Bilirubin NEGATIVE (NEGATIVE) 01/09/20 05:20 Urine Urobilinogen NEGATIVE mg/dL (<2.0) 01/09/20 05:20 Leukocyte Esterase Rfl NEGATIVE (NEGATIVE) 01/09/20 05:20 Urine RBC (Auto) 3 /HPF 01/05/20 02:54 Urine WBC (Reflex) 1 /HPF 01/05/20 02:54 Squamous Epi Cells Auto <1 /HPF 01/09/20 05:20 Urine Mucus (Auto) RARE /LPF 01/09/20 05:20 Urine Ascorbic Acid NEGATIVE (NEGATIVE) 01/09/20 05:20 Stool for White Cells NO WBCs SEEN 01/09/20 16:30 Stl C. Difficile GDH Ag POSITIVE (NEGATIVE) 01/09/20 16:30 Stl C.difficile Tox A&B POSITIVE (NEGATIVE) 01/09/20 16:30 Slides for Path Review PATHOLOGIST REVIEWED 01/06/20 06:00 01/04/20 01/07/20 23:35 18:15 Troponin I 0.015 NT-Pro-B Natriuret Pep 7420 H Impressions: Chest X-Ray 01/05/20 00:00 IMPRESSION: Right jugular central line tip superior vena cava. No pneumothorax Shoulder X-Ray 01/05/20 05:53 IMPRESSION: Similar findings when compared to the prior study revealing a comminuted mildly displaced fracture involving the right humeral head and neck. There are also degenerative changes involving the distal right clavicle and there is mild narrowing of the glenohumeral joint. Upper Extremity MRI 01/10/20 00:00 IMPRESSION: 1. Known comminuted fracture of the proximal humerus. 2. Partial width full-thickness tear of the supraspinatus. Plan Plan of Treatment: Patient is discharged home, in stable condition, to the care of family members with home health services. He is instructed to follow-up with primary care provider within 1 week. Report any fever, abdominal pain, or increased frequency of diarrhea to PCP immediately. Wash hands frequently (and after every trip to the bathroom) with soap and water. Hand stitcher feeder will not be effective while recovering from c. diff infection. Complete full course of antibiotic therapy. Take other medication as prescribed. Eat a heart healthy diet. Do NOT smoke. Return to emergency department as needed for concerning symptoms. At patient's request, I attempted to call his daughter, Jim, prior to discharge at [phone]; no answer or voice mail. This afternoon (unfortunately, following discharge) I was able to reach his other daughter, Kristie (who lives with the patient), at the above mentioned phone number. We discussed his ICU admission with diagnosis of E. coli bacteremia and C. difficile diarrhea. Reviewed need to complete oral Vancomycin and hand washing with soap/water. Answered all questions. I apologized that I had not been able to reach family prior to his discharge today. At her request, I attempted to contact Jim again at [phone]. There was no answer and voicemail box was not set up. Finally, attempted to reach family at the [facility] number listed in [employer], , that turned out to be a fax machine. Time Spent: Greater than 30 Minutes Stroke Is this a Stroke Patient?: No Acute Heart Failure - Is this a Heart Failure Patient?: No
== END 2020-01-15 15:18 | disposition home health service (06) | DRG 872 ==
LOC: ER 23:06 → EH 01-05 06:51 → ICU 01-05 07:05 → 3N 01-08 18:04 → 4N 01-11 18:59
PROVIDERS: ADMIT Internal Medicine Critical Care Medicine; ATTEND Registered Nurse
PROC: 03HY32Z Insertion of Monitoring Device into Upper Artery, Percutaneous Approach (ICD-10-PCS; principal; 2020-01-05)
PROC: 02HV33Z Insertion of Infusion Device into Superior Vena Cava, Percutaneous Approach (ICD-10-PCS; 2020-01-05)
DX: A41.51 Sepsis due to Escherichia coli [E. coli] (principal); E87.2 Acidosis; E27.40 Unspecified adrenocortical insufficiency; S42.201A Unspecified fracture of upper end of right humerus, initial encounter for closed fracture; Z16.11 Resistance to penicillins; Z16.23 Resistance to quinolones and fluoroquinolones; Z16.29 Resistance to other single specified antibiotic; E87.1 Hypo-osmolality and hyponatremia; F05 Delirium due to known physiological condition; A04.72 Enterocolitis due to Clostridium difficile, not specified as recurrent; K21.9 Gastro-esophageal reflux disease without esophagitis; N40.0 Benign prostatic hyperplasia without lower urinary tract symptoms; F03.90 Unspecified dementia, unspecified severity, without behavioral disturbance, psychotic disturbance, mood disturbance, and anxiety; W19.XXXA Unspecified fall, initial encounter; Y93.89 Activity, other specified; Y92.018 Other place in single-family (private) house as the place of occurrence of the external cause; Z79.01 Long term (current) use of anticoagulants; Z79.899 Other long term (current) drug therapy; Z86.73 Personal history of transient ischemic attack (TIA), and cerebral infarction without residual deficits
CPT/HCPCS: 36415; 71045; 80048; 80053; 81001; 82140; 82330; 82533; 82803; 82962; 83605; 83735; 83880; 84100; 84439; 84443; 84481; 84484; 85025; 85027; 85610; 87040; 87045; 87077; 87150; 87186; 87205; 87324; 87449; 89055; 93005; 93010; 93306; 96361; 96365; 96366; 96367; 99291; 99292; J0696; J1642; J1650; J1720; J1815; J2185; J2543; J3370; J3475; J3490; J7030; J7060; S0028